=== PATIENT | female | born 1955 | race African-American/Black ===

== ENCOUNTER 2016-12-24 08:31 | Inpatient (IN) ==
[2016-12-24] MEDS ORDERED: ACETAMINOPHEN 325 MG TABLET PO PRN ×2 (10:04)
[2016-12-24] MEDS ORDERED: ONDANSETRON 4 MG/2 ML VIAL IV PRN (10:04)
[2016-12-24 11:18] LABS: Apearance,Urine Slightly Hazy (Clear); Bilirubin,Urine Negative (Negative); Blood, Urine Moderate mg/dL (Negative); Glucose,Urine (UA) Negative (Negative); Hyaline Casts,Urine 11 /LPF (0-3); Ketones,Urine Negative (Negative); Mucus,Urine Occasional /LPF (Occasional); Nitrite,Urine Negative (Negative); Protein,Urine Negative; RBC,Urine 16 /HPF (0-4); Squamous Epithelial Cell,Urine Occasional /HPF (0-10); Urine Color Yellow (Yellow); Urine Specific Gravity 1.009 (1.001-1.035); Urine Urobilinogen < 2.0 EU/DL (0.2-1.0); WBC,Urine 4 /HPF (0-6)
--- NOTE | 2016-12-24 11:45 | Hospitalist History & Physical ---
Assessment and Plan (1) Bilateral pleural effusion Status: Acute Assessment and plan: Will obtain chest xray and continue diuresis. May require therapeutic thorocentesis if no improvement in 24 hours. Current Visit: Yes (2) Leukocytosis Status: Acute Assessment and plan: Will obtain gill cultures; and continue empirical antibiotics. Current Visit: Yes (3) Congestive heart failure (CHF) Status: Acute Assessment and plan: Continue diuretics and obtain echocardiogram today. Will repeat CXR in AM. Current Visit: Yes History of Present Illness Chief complaint: Upper GI Bleed, dyspnea, leukocytosis, congestive heart failure History of present illness: This is a very pleasant 61 year-old -German female that presents today as a lateral transfer from [facility]. She presented to [facility] on 12/22 reporting a chief complaint of rectal bleeding x2 days. The patient reported similar an episode similar in nature "a couple of weeks ago"; however she reports that "it stopped by itself". She has medical history positive for hypertension. She reports a surgical history of a hysterectomy; however she is unable to report the year at this time. At the time of admission at [facility], a full diagnostic work-up was performed. Stools for occult blood were positive; however her hemoglobin and hematocrit remained stable. She had no further episodes of bloody stools. The patient developed tachycardia, which was thought to secondary to volume depletion and at that time fluids were given. The patient remained tachycardic; however she was stable. A BNP was obtained; which revealed a moderate elevation and diuretics were given and her BNP trended down to 911 today. On yesterday, the patient developed dyspnea, became febrile, and had a noted elevation in her white blood cell counts were noted to be 23,000. A CT of the chest was ordered which revealed congestive heart failure, bilateral plueral effusion; however no pulmonary embolism was present. The client was then placed on empirical antibiotics and observed overnight. Today, she appeared more short of breath and ill in appearance. She was evaluated and deemed appropriate for transfer to [facility] for advanced level of care. She will be admitted to the hospitalist services for continuation of care. Home Medications Medication Instructions Recorded Confirmed Type Albuterol Inhaler [Proventil 2 puffs INH Q6HR PRN 12/24/16 12/24/16 History Inhaler] Aspirin [Ecotrin] 81 mg PO DAILY 12/24/16 12/24/16 History Benzonatate 200 mg PO TID 12/24/16 12/24/16 History Budesonide/Formoterol 160-4.5 2 puffs INH DAILY 12/24/16 12/24/16 History [Symbicort 160-4.5] Cetirizine HCl [Cetirizine Tab] 10 mg PO DAILY 12/24/16 12/24/16 History Fluticasone 50 Mcg Nasal [place] 1 spray BOTH NARES DAILY 12/24/16 12/24/16 History [Flonase Nasal [place]] Montelukast Tab [Singulair Tab] 10 mg PO BEDTIME 12/24/16 12/24/16 History Omeprazole [Omeprazole] 40 mg PO DAILY 12/24/16 12/24/16 History amLODIPine [Norvasc] 10 mg PO DAILY 12/24/16 12/24/16 History hydroCHLOROthiazide 25 mg PO DAILY 12/24/16 12/24/16 History [Hydrochlorothiazide] predniSONE TAB [PredniSONE] 20 mg PO DAILY 12/24/16 12/24/16 History Allergies Allergy/AdvReac Type Severity Reaction Status Date / Time morphine AdvReac Mild Nausea Verified 12/24/16 11:27 Medical,Surgical,& Family Hx - Medical History Cardio: History of: Hypertension Genitourinary: History of: Recurring Urinary Tract Infections Gastrointestinal: History of: GERD, Hemorrhoids Musculoskeletal: History of: Osteoporosis No history of: Amputation Reproductive: History of: Reproductive Problems - Surgical History Cardiac Surgeries: Patient Denies: Cardiac Catheterization Thoracic Surgeries: Patient denies;: Organ Transplant, Lobectomy Neurologic Surgeries: Patient denies: Neurologic Surgery HEENT Surgeries: Patient denies: Tonsilectomy & Adenoidectomy Abdominal Surgeries: Patient denies: Abdominal Surgery Reproductive Surgeries: Surgical HX of;: Gynecologic Surgery, Hysterectomy Patient denies;: Genitourinary Surgery - Family History Family History: Reports;: Family Diabetes (neice), Family Hypertension (mom), Family Stroke (sister) - Social History Smoking Status: Never smoker Frequency of Alcohol Use: None Type of Drug Use: None 12 point system: reviewed and no additional remarkable complaints except as stated - Cardiovascular Cardiovascular: Present: dyspnea, dyspnea on exertion, orthopnea - Respiratory Respiratory: Present: cough, dyspnea, dyspnea on exertion - Gastrointestinal Gastrointestinal: Present: abdominal pain, cramping, melena - Genitourinary Genitourinary: Present: as per HPI - Musculoskeletal Musculoskeletal: Present: as per HPI - Neurological Neurological: Present: as per HPI - Psychiatric Psychiatric: Present: as per HPI - Endocrine Endocrine: Present: as per HPI - Hematologic/Lymphatic Hematologic/Lymphatic: Present: as per HPI Exam - Constitutional Vitals: Period Temp Pulse Resp BP Sys/Hart Pulse Ox Last 24 Hr 97.4 F 110 20 143/79 89 General appearance: normal weight, mild distress - Head Head exam: Present: normal inspection, normocephalic, atraumatic - Eye Eye exam: Present: EOMI Pupils: Present: MORGAN, normal accommodation - ENT ENT exam: Present: normal exam - Neck Neck exam: Present: normal inspection. Absent: lymphadenopathy, meningismus, thyromegaly - Respiratory Respiratory exam: Present: accessory muscle use, decreased breath sounds - Cardiovascular Cardiovascular exam: Present: tachycardia. Absent: carotid bruit, diastolic murmur, gallop, JVD, rubs, systolic murmur - GI/Abdominal GI/Abdominal exam: Present: normal bowel sounds, soft - Extremities Exam Extremities exam: Present: normal inspection - Back Exam Back exam: Present: normal inspection - Neurological Exam Neurological exam: Present: alert, oriented X3, CN II-XII intact - Psychiatric Psychiatric exam: Present: normal affect - Skin Skin exam: Present: normal color, warm, dry Quality Measures - VTE Deep Vein Thrombosis/Pulmonary Embolism Present on Admission: No Contraindication to Pharmacological VTE Prophylaxis: Active Bleeding
--- NOTE | 2016-12-24 15:40 | XRay Report ---
Exam: XR chest 1V portable Date: 12/24/2016 2:49 PM Indication: Shortness of breath, effusion Comparison: None Technical: AP portable Findings: Cardiomegaly present. Low volume effusions are present. External cardiac leads are present. No obvious consolidation or pneumothorax. Mediastinum is intact. Impression: 1. Cardiomegaly with tiny low volume effusion suspected bilaterally in the mid inspiratory chest. PROCEDURE INTERPRETED AT [facility] DEPARTMENT OF RADIOLOGY Final Report Signed by: Dr. Stanislaw Avery
[2016-12-24 16:02] LABS: Allen Test Positive
[2016-12-24 16:03] LABS: ABG HCO3 38.9 MMOL/L (20-26); ABG Oxygen Saturation 92.9 % (95-100); ABG PCO2 50.2 MM HG (35-48); ABG PH 7.507 (7.35-7.45); ABG PO2 64.8 MM HG (80-95); ABG TCO2 40.4 MMOL/L (23-27)
[2016-12-24] MEDS: methylPREDNISolone SOD SUC 40 MG/1 ML VIAL IV SCH (16:21)
[2016-12-24] MEDS: PIPERACILLIN/TAZOBACTAM 3,375 MG in SODIUM CHLORIDE 0.9% 100 ML IV SCH (16:21)
[2016-12-24] MEDS: BENZONATATE 100 MG CAPSULE PO SCH ×2 (16:23→22:10)
--- NOTE | 2016-12-24 16:36 | Pulmonology Consult Note ---
Assessment and Plan (1) Hematochezia Status: Acute Assessment and plan: This will need to be worked up by GI. She needs a colonoscopy at some point. Current Visit: Yes (2) Bilateral pleural effusion Status: Acute Assessment and plan: She had a normal chest x-ray by report 2 months ago at [place]. Now with bilateral pleural effusions. I would be concerned about fluid overload or congestive heart failure. Agree with evaluation for inflammatory causes of effusions. She had an outside CT scan. I can see a report but not the films. We will attempt to get the films put in the computer so we will have to repeat the CT. need to be sure there is enough fluid to safely tap Current Visit: Yes (3) Congestive heart failure (CHF) Status: Acute Assessment and plan: Need to get echocardiogram and BNP Current Visit: Yes History of Present Illness Chief complaint: Cough and shortness of breath History of present illness: Ms. Hammond is a 61 year old female was at [place] last month and had evaluation and was put on bronchodilators. She said it was for allergies she does not know of any diagnosis of asthma. She went home and did all right but has recently been admitted to the hospital in [place] and transferred here because of rectal bleeding. She was found on chest x-ray to have small bilateral pleural effusions. She also has elevated white count. She had a CT done in [place] that revealed evidence of congestive heart failure with bilateral pleural effusions however we do not have the films to review. She has not had fever or chills Home Medications Medication Instructions Recorded Confirmed Type Albuterol Inhaler [Proventil 2 puffs INH Q6HR PRN 12/24/16 12/24/16 History Inhaler] Aspirin [Ecotrin] 81 mg PO DAILY 12/24/16 12/24/16 History Benzonatate 200 mg PO TID 12/24/16 12/24/16 History Budesonide/Formoterol 160-4.5 2 puffs INH DAILY 12/24/16 12/24/16 History [Symbicort 160-4.5] Cetirizine HCl [Cetirizine Tab] 10 mg PO DAILY 12/24/16 12/24/16 History Fluticasone 50 Mcg Nasal [place] 1 spray BOTH NARES DAILY 12/24/16 12/24/16 History [Flonase Nasal [place]] Montelukast Tab [Singulair Tab] 10 mg PO BEDTIME 12/24/16 12/24/16 History Omeprazole [Omeprazole] 40 mg PO DAILY 12/24/16 12/24/16 History amLODIPine [Norvasc] 10 mg PO DAILY 12/24/16 12/24/16 History hydroCHLOROthiazide 25 mg PO DAILY 12/24/16 12/24/16 History [Hydrochlorothiazide] predniSONE TAB [PredniSONE] 20 mg PO DAILY 12/24/16 12/24/16 History Allergies Allergy/AdvReac Type Severity Reaction Status Date / Time morphine AdvReac Mild Nausea Verified 12/24/16 11:27 - Constitutional Constitutional: Present: fatigue - Cardiovascular Cardiovascular: Present: dyspnea, dyspnea on exertion, orthopnea - Respiratory Respiratory: Present: cough, dyspnea, dyspnea on exertion - Gastrointestinal Gastrointestinal: Present: abdominal pain, hematochezia Exam (Pulmonay) H&P - Constitutional Vitals: Period Temp Pulse Resp BP Sys/Hart Pulse Ox Last 24 Hr 97.4 F-98.8 F 110-120 18-20 143-143/77-79 89-90 Exam: He is alert oriented vital signs normal. Pupils react to light. Throat is clear. Neck supple no bruits. Chest reveals some dullness in the bases and a few rales. Heart normal rate and rhythm no murmurs no rubs no gallops. Abdomen soft nontender no masses. Bowel sounds present. Extremities no clubbing or cyanosis she has a trace of edema Medical,Surgical,& Family Hx - Medical History Cardio: History of: Hypertension Genitourinary: History of: Recurring Urinary Tract Infections Gastrointestinal: History of: GERD, Hemorrhoids Musculoskeletal: History of: Osteoporosis No history of: Amputation Reproductive: History of: Reproductive Problems - Surgical History Cardiac Surgeries: Patient Denies: Cardiac Catheterization Thoracic Surgeries: Patient denies;: Organ Transplant, Lobectomy Neurologic Surgeries: Patient denies: Neurologic Surgery HEENT Surgeries: Patient denies: Tonsilectomy & Adenoidectomy Abdominal Surgeries: Patient denies: Abdominal Surgery Reproductive Surgeries: Surgical HX of;: Gynecologic Surgery, Hysterectomy Patient denies;: Genitourinary Surgery - Family History Family History: Reports;: Family Diabetes (neice), Family Hypertension (mom), Family Stroke (sister) - Social History Smoking Status: Never smoker Frequency of Alcohol Use: None Type of Drug Use: None Results - Diagnostic Findings Procedure: Chest x-ray: image reviewed by me (Bilateral pleural effusions are little larger on the right than the left. Cardiomegaly.) Quality Measures - VTE Deep Vein Thrombosis/Pulmonary Embolism Present on Admission: No Contraindication to Pharmacological VTE Prophylaxis: Active Bleeding - Stroke Symptom Onset Unknown: No
[2016-12-24 17:12] LABS: INR 1.3
[2016-12-24 17:15] LABS: Albumin 2.7 G/DL (3.4-5.0); Total Protein 6.9 G/DL (6.4-8.3)
--- NOTE | 2016-12-24 17:28 | XRay Report ---
Exam: XR chest lateral decubitus BI Date: 12/24/2016 4:32 PM Indication: Pleural effusion Comparison: 12/24/2016 at 3:01 PM Technical: Right and left decubitus imaging was obtained. Findings: No obvious layering of pleural fluid along the left chest with minimal thickening of the pleural margin. Cardiomegaly is present. No significant layering of fluid along the right chest with some atelectatic change present in the right base and tiny effusions. Impression: 1. No significant layering pleural effusions bilaterally with underlying atelectatic change and cardiomegaly. Small effusions are present with atelectasis bilaterally PROCEDURE INTERPRETED AT [facility] DEPARTMENT OF RADIOLOGY Final Report Signed by: Dr. Stanislaw Avery
[2016-12-24 17:36] LABS: Basophils % 0.2 % (0.0-0.8); Hematocrit 33.4 VOL% (35.7-47.0); Hemoglobin 10.6 GM/DL (12.0-16.0); Immature Granulocytes % 0.8 %; Immature Granulocytes Absolute 0.15 #; Lymphocytes # 1.3 10*3/uL (1.4-4.0); Lymphocytes % 6.4 % (21.3-54.2); Mean Corpuscular HGB Conc 31.7 GM/DL (32-36); Mean Corpuscular Hemoglobin 28 PG (27-34); Mean Corpuscular Volume 87.7 FL (87-102); Mean Platelet Volume 9.8 FL (9.6-12.0); Monocytes # 1.3 10*3/uL (0.11-0.8); Monocytes % 6.6 % (1.7-12.7); Neutrophils # 17.2 10*3/uL (1.4-7.4); Platelet Count 331 T/CUMM (130-400); Red Blood Count 3.81 MC/CUMM (3.8-5.5); Red Cell Distribution Width 15.6 % (9.3-17.3)
[2016-12-24 17:46] LABS: Calcium 8.8 MG/DL (8.5-10.1); Osmolality,Calculated 283.4 MOS/KG (273-304); Potassium 3.4 MMOL/L (3.5-5.1)
[2016-12-24] MEDS ORDERED: VANCOMYCIN INJ 750 MG in SODIUM CHLORIDE 0.9% 250 ML IV SCH (21:00)
[2016-12-24] MEDS: MONTELUKAST 10 MG TABLET PO SCH (22:11)
[2016-12-25] MEDS: PIPERACILLIN/TAZOBACTAM 3,375 MG in SODIUM CHLORIDE 0.9% 100 ML IV SCH ×3 (00:45→15:26)
[2016-12-25] MEDS: methylPREDNISolone SOD SUC 40 MG/1 ML VIAL IV SCH ×2 (03:56→15:26)
[2016-12-25 05:22] LABS: Basophils % 0.1 % (0.0-0.8); Hematocrit 32.9 VOL% (35.7-47.0); Hemoglobin 10.2 GM/DL (12.0-16.0); Immature Granulocytes % 1.5 %; Immature Granulocytes Absolute 0.23 #; Lymphocytes # 0.9 10*3/uL (1.4-4.0); Lymphocytes % 5.8 % (21.3-54.2); Mean Corpuscular Hemoglobin 27 PG (27-34); Mean Platelet Volume 9.2 FL (9.6-12.0); Monocytes # 0.6 10*3/uL (0.11-0.8); Neutrophils # 13.7 10*3/uL (1.4-7.4); Neutrophils % 88.6 % (38.7-73.9); Platelet Count 328 T/CUMM (130-400); Red Blood Count 3.74 MC/CUMM (3.8-5.5); Red Cell Distribution Width 15.7 % (9.3-17.3); White Blood Count 15.4 T/CUMM (4-12)
[2016-12-25 05:52] LABS: Albumin 2.4 G/DL (3.4-5.0); Bilirubin,Total 0.4 MG/DL (0.2-1.0); Calcium 8.4 MG/DL (8.5-10.1); Magnesium 2.5 MG/DL (1.8-2.4); Osmolality,Calculated 289.1 MOS/KG (273-304); Potassium 3.5 MMOL/L (3.5-5.1); Risk Ratio 4.79; Thyroid Stimulating Hormone 0.262 uIU/ml (0.358-3.74); Total Protein 6.4 G/DL (6.4-8.3); VLDL CHOLESTEROL 16.2 MG/DL
--- NOTE | 2016-12-25 07:47 | XRay Report ---
Single view of the chest. Indication: Shortness of breath. Comparison: December 24, 2016. The cardiac silhouette is enlarged. The pulmonary vasculature is normal. There is opacity over both lung bases, at the right base there is some improvement in aeration, with mild infiltrate or atelectasis persisting, and a small right pleural effusion. Increased opacity at the left lung base which may represent atelectasis or pneumonia, plus pleural effusion, generally unchanged. Degenerative changes of both shoulders. Impression: Enlarged cardiac silhouette, stable. Some improvement at the right base, stable pleural and parenchymal abnormality at the left base. PROCEDURE INTERPRETED AT [facility] DEPARTMENT OF RADIOLOGY Final Report Signed by: Dr. Divine Llanos
--- NOTE | 2016-12-25 08:11 | Pulmonology Progress Note ---
Pulmonary - PN: Subj Interval history: This 61-year-old black female came in with shortness of breath. An outside CT done in [place] day before yesterday indicate bilateral pleural effusions and looks to me like she has a significant pericardial effusion as well. She set up for a thoracentesis ultrasound-guided today. She has had markers for rheumatologic disorders. She is not febrile. An echocardiogram is pending. We may need to have cardiology to see her to see if she needs a pericardiocentesis or other evaluation of pericardial effusion. We will let the echocardiogram tell us that. Exam (Progress Note) - Constitutional Vitals: Period Temp Pulse Resp BP Sys/Hart Pulse Ox Last 24 Hr 96.3 F-98.8 F 63-120 16-20 143-190/77-87 89-99 Exam: Patient's alert oriented vital signs are normal. Pupils react to light. Throat is clear. Neck supple no bruits. Chest reveals decreased breath sounds at the bases and slight dullness. Heart normal rate and rhythm I do not hear any murmurs or rubs. Abdomen is soft nontender no masses. Extremities she has trace to 1+ peripheral edema. Calves nontender. Results - Labs CBC & BMP: 12/25/16 04:28 12/25/16 04:28 Lab Results: I have reviewed the past 24 hour labs - Diagnostic Findings Procedure: Chest x-ray: image reviewed by me (Lateral decubitus x-rays show a small amount of fluid bilaterally about 1.5 cm at most.) Assessment and Plan (1) Hematochezia Status: Acute Assessment and plan: This will need to be worked up by GI. She needs a colonoscopy at some point. 12/25/2016 she will need a colonoscopy for the hematochezia at some point. Current Visit: Yes (2) Bilateral pleural effusion Status: Acute Assessment and plan: She had a normal chest x-ray by report 2 months ago at [place]. Now with bilateral pleural effusions. I would be concerned about fluid overload or congestive heart failure. Agree with evaluation for inflammatory causes of effusions. She had an outside CT scan. I can see a report but not the films. We will attempt to get the films put in the computer so we will have to repeat the CT. need to be sure there is enough fluid to safely tap 12/25/2016 she is to have a thoracentesis with ultrasound guidance by interventional radiology today. Current Visit: Yes (3) Congestive heart failure (CHF) Status: Acute Assessment and plan: Need to get echocardiogram and BNP 12/25/2016 it appears that she has pericardial fluid on her outside CT. That was not available for viewing yesterday. Echocardiogram is pending. Current Visit: Yes
--- NOTE | 2016-12-25 08:23 | Physician Query Form ---
CLICK EDIT DOCUMENT TO SELECT QUERY ANSWER --> OK --> SIGN Shivani Mckeon RN, CCDS Certified Clinical Picking Machine Operator W) [phone] (f) [phone] [email or web address] PROVIDERS: Make your selection(s) from the choices in EACH section by typing an "x" and enter comments in the comment section. Please use your independent medical judgment in providing your response. This request does not imply that any particular answer is desired or expected. CLINICAL INDICATORS: (Providers should not edit this section) The medical record indicates that the patient was admitted with pleural effusion , CHF, BNP 162#, xray on the 3rd: "Cardiomegaly with tiny low volume effusion suspected bilaterally in the mid inspiratory chest" and no Lasix was seen. Please provide further specificity regarding CHF. ACUITY: ( ) Acute ( ) Chronic ( ) Acute on Chronic ( ) Clinically unable to determine TYPE: ( ) Systolic ( ) Diastolic ( ) Combined Systolic/Diastolic ( x) Other, please specify:we don't know if she has CHF yet. be patient! echo pending ( ) Clinically unable to determine ( ) The patient does NOT have CHF COMMENTS: Use of terms such as suspected, likely, or probable (associated with a specific diagnosis that is being evaluated, monitored, or treated as if it exists) are acceptable and can be restated in the discharge summary if not ruled out. MTDD
--- NOTE | 2016-12-25 08:33 | Physician Query Form ---
CLICK EDIT DOCUMENT TO SELECT QUERY ANSWER --> OK --> SIGN Shivani Mckeon RN, CCDS Certified Clinical Customer Specialist W) [phone] (f) [phone] [email or web address] PROVIDERS: Make your selection(s) from the choices in EACH section by typing an "x" and enter comments in the comment section. Please use your independent medical judgment in providing your response. This request does not imply that any particular answer is desired or expected. CLINICAL INDICATORS: (Providers should not edit this section) The medical record indicates that the patient was admitted with pleural effusion , CHF, "accessory muscle use, decreased breath sounds", "dyspnea, dyspnea on exertion, orthopnea", pH 7.507, pCO2 50.2, p02 64.8, RR of 20#, the patient was admitted and placed on 5 liters of oxygen per NC. If possible, please further clarify the type and acuity of respiratory diagnosis : ACUITY: ( x) Acute ( ) Chronic ( ) Acute on Chronic TYPE: (x ) Respiratory failure with hypoxia ( x) Respiratory failure with hypercapnia ( ) Respiratory Arrest ( ) Postprocedural/postoperative respiratory failure ( ) Respiratory Insufficiency ( ) ARDS (Adult/Acute Respiratory Distress Syndrome) ( ) Other, please specify: ( ) Clinically unable to determine Recognized criteria for respiratory failure PH <7.35 or >7.45 PO2 <60 PCO2 >50 RR >24 O2 Sat <90% on RA or <95% on O2 Use of accessory muscles Unable to speak in full sentences Intubation is not required COMMENTS: Use of terms such as suspected, likely, or probable (associated with a specific diagnosis that is being evaluated, monitored, or treated as if it exists) are acceptable and can be restated in the discharge summary if not ruled out. MTDD
[2016-12-25] MEDS ORDERED: predniSONE 20 MG TABLET PO SCH (09:00)
[2016-12-25] MEDS: amLODIPine 10 MG TABLET PO SCH (09:15)
[2016-12-25] MEDS: hydroCHLOROthiazide 25 MG TABLET PO SCH (09:15)
[2016-12-25] MEDS: BENZONATATE 100 MG CAPSULE PO SCH ×3 (09:15→21:10)
[2016-12-25] MEDS: ASPIRIN EC 81 MG TABLET PO SCH (09:15)
[2016-12-25] MEDS: CETIRIZINE 10 MG TABLET PO SCH (09:16)
[2016-12-25] MEDS: BUDESONIDE/FORMOTEROL 160-4.5 INHALER 6 GM INH SCH (09:16)
[2016-12-25] MEDS: PANTOPRAZOLE 40 MG TABLET PO SCH (09:16)
[2016-12-25] MEDS: FLUTICASONE 50 MCG NASAL SPRAY 16 GM BOTTLE BOTH NARES SCH (09:21)
--- NOTE | 2016-12-25 09:58 | Post Interventional Procedure ---
Pre-op diagnosis: Lt pleural effusion Post-op diagnosis: same Procedure: US guided thoracentesis Radiologist: Ernie Balderas Anesthesia: local Specimens: other (5 cc straw colored pleural fluid) Estimated blood loss: none Complications: none Condition: stable Description/Findings: Only able to aspirate 5 cc straw colored fluid, requiring 2 passes under US guidance into a hypoechoic collection left posterior pleural space. Suspect loculations of a very small pleural effusion. No additional pleural fluid identified by US. Assessment and Plan - Time spent with patient Time spent with patient: Less than 30 minutes
[2016-12-25] MEDS: VANCOMYCIN INJ 1,250 MG in SODIUM CHLORIDE 0.9% 250 ML IV SCH ×2 (10:24→21:09)
[2016-12-25 12:09] LABS: Double Stranded DNA Antibodies > 200.0 IU/ML
[2016-12-25 12:11] LABS: Anti SS-A Antibodies < 16 EU/ML; Anti SS-B Antibodies < 16 EU/ML
--- NOTE | 2016-12-25 12:22 | XRay Report ---
XR chest post procedure Indication: Postthoracentesis. Post procedure chest radiograph, 2 views: Inspiratory and expiratory views of the chest were obtained. No pneumothorax shown. This radiograph shows at most, there is only a trace amount of pleural fluid on this exam best seen on the inspiratory view. Cardiomegaly is stable from earlier. Impression: No pneumothorax following thoracentesis. PROCEDURE INTERPRETED AT [facility] DEPARTMENT OF RADIOLOGY Final Report Signed by: Ernie Balderas M.D.
--- NOTE | 2016-12-25 12:24 | Ultrasound Report ---
US thoracentesis Indication: Pleural effusion. ULTRASOUND-GUIDED THORACENTESIS Description: A formal timeout was performed. Maximum sterile barrier technique was used. A extremely small left pleural effusion was identified with ultrasound. The left back was prepped and draped in sterile fashion. Under sonographic guidance, a 6 Lao pigtail catheter was advanced into the effusion using trocar technique. A captured sonographic image documents needle position. The needle was removed. Through the catheter, we obtained a total of 2 cc of straw-colored, clear fluid. The catheter was removed. A second pass was then made with the pigtail catheter using trocar technique further medially into the same fluid collection, also with ultrasound guidance. Another captured sonographic image was saved. This time, we obtained a total of 3 cc straw-colored fluid. A bandage was placed at the puncture site. The patient tolerated the procedure well. Chest radiograph is pending. Specimen: 5 cc straw-colored clear pleural fluid. Impression: Ultrasound-guided thoracentesis. Tiny pleural effusion. PROCEDURE INTERPRETED AT [facility] DEPARTMENT OF RADIOLOGY Final Report Signed by: Ernie Balderas M.D.
--- NOTE | 2016-12-25 13:47 | Hospitalist Progress Note ---
Assessment and Plan (1) Bilateral pleural effusion Status: Acute Assessment and plan: Thoracentesis this AM per IR. Will re-check CXR in AM. Current Visit: Yes (2) Leukocytosis Status: Acute Assessment and plan: Continue empirical antibiotics and previously ordered. Current Visit: Yes (3) Congestive heart failure (CHF) Status: Acute Assessment and plan: Will re-check BNP in AM. Awaiting Echo report. Current Visit: Yes Hospitalist: Subjective Interval history: Patient seen and examined. No significant overnight events. Scheduled for ultrasound guided thoracentesis this AM. Exam - Constitutional Vitals: Period Temp Pulse Resp BP Sys/Hart Pulse Ox Last 24 Hr 96.3 F-98.8 F 63-126 16-22 143-191/77-101 90-100 General appearance: normal weight, mild distress - Head Head exam: Present: normal inspection, normocephalic, atraumatic - Eye Eye exam: Present: EOMI. Absent: periorbital swelling, scleral icterus, laceration to eyelids Pupils: Present: MORGAN, normal accommodation - ENT ENT exam: Present: normal exam - Neck Neck exam: Present: normal inspection. Absent: lymphadenopathy, meningismus, tenderness, thyromegaly - Respiratory Respiratory exam: Present: decreased breath sounds. Absent: rhonchi, stridor, wheezes - Cardiovascular Cardiovascular exam: Present: regular rate and rhythm. Absent: carotid bruit, diastolic murmur, gallop, JVD, rubs, systolic murmur - GI/Abdominal GI/Abdominal exam: Present: normal bowel sounds, soft - Extremities Exam Extremities exam: Present: normal inspection, full ROM, edema (+2) - Back Exam Back exam: Present: normal inspection - Neurological Exam Neurological exam: Present: alert, oriented X3, CN II-XII intact - Psychiatric Psychiatric exam: Present: normal affect, normal mood - Skin Skin exam: Present: normal color, warm, dry Results - Labs CBC & BMP: 12/25/16 04:28 12/25/16 04:28 Lab Results: I have reviewed the past 24 hour labs Quality Measures - VTE Deep Vein Thrombosis/Pulmonary Embolism Present on Admission: No Contraindication to Pharmacological VTE Prophylaxis: Active Bleeding - Stroke Symptom Onset Unknown: No
--- NOTE | 2016-12-25 19:53 | ECHO Report ---
Rhoda Hammond Exam Date: 12/25/2016 11:26 Referring Physician: Technologist: Anitha Rodriguez RDCS Age: 61 Ht (in): 65 Wt (lb): 176 Gender: F Exam Location: [facility] Echo Indications: Heart failure, unspecified, Pleural effusion, not elsewhere classified, Leukocytosis, Essential (primary) hypertension, Orthopnea, Cough BP: 160 / 91 HR: 119 Rhythm: Sinus Technical Quality: IMPRESSIONS Technically limited study. Small left ventricle, without hypertrophy, with normal systolic function. Estimated left ventricular ejection fraction 65%. Small concentric pericardial effusion, with incomplete data to estimate hemodynamic significance. MEASUREMENTS (Male / Female) Normal Values 2D ECHO LV Diastolic Diameter PLAX 2.9 cm 4.2 - 5.9 / 3.9 - 5.3 cm LV Systolic Diameter PLAX 1.7 cm LV Fractional Shortening PLAX 42.2 % IVS Diastolic Thickness 0.9 cm 0.6 - 1.0 / 0.6 - 0.9 cm LVPW Diastolic Thickness 1.0 cm 0.6 - 1.0 / 0.6 - 0.9 cm RV Internal Dim ED PLAX 1.7 cm Aortic Root Diameter 3.1 cm LA Systolic Diameter LX 4.0 cm 3.0 - 4.0 / 2.7 - 3.8 cm DOPPLER TR Peak Velocity 247.0 cm/s TR Peak Gradient 24.4 mmHg FINDINGS Left Ventricle Small left ventricle, without hypertrophy, with normal systolic function. Estimated left ventricular ejection fraction 65%. Insufficient data to estimate diastolic function. Right Ventricle The right ventricle is normal in size and function. Right Atrium The right atrium is poorly visualized. Left Atrium Normal left atrial size. Mitral Valve Morphologically normal mitral valve without significant stenosis or prolapse. There is trace mitral regurgitation. Insufficient data to estimate respiratory variation and mitral inflow. Aortic Valve Morphologically normal aortic valve without significant sclerosis or stenosis. There is no aortic regurgitation. Tricuspid Valve Morphologically normal tricuspid valve. Trace to mild tricuspid valve regurgitation. Tricuspid regurgitation velocities suggest a PAP of 34 mmHg. Pulmonic Valve Morphologically normal pulmonic valve. Trace pulmonary valve regurgitation. Pericardium Small concentric pericardial effusion, up to 1.5 centimeters in diastole. Insufficient data to estimate hemodynamic significance. No right ventricular collapse is seen. The right atrium is not well visualized. Aorta Normal ascending aorta dimension. Chauncey Carmen (Electronically Signed) Final Date: 25 December 2016 19:52
[2016-12-25] MEDS: MONTELUKAST 10 MG TABLET PO SCH (21:10)
[2016-12-26] MEDS: PIPERACILLIN/TAZOBACTAM 3,375 MG in SODIUM CHLORIDE 0.9% 100 ML IV SCH ×4 (00:45→23:26)
[2016-12-26] MEDS ORDERED: METOPROLOL TARTRATE 25 MG TABLET ONE (02:46)
[2016-12-26] MEDS: METOPROLOL TARTRATE 25 MG TABLET PO SCH ×3 (02:54→22:05)
[2016-12-26] MEDS: methylPREDNISolone SOD SUC 40 MG/1 ML VIAL IV SCH ×2 (04:04→16:05)
[2016-12-26 06:17] LABS: Free T4 (Free Thyroxine) 1.46 NG/DL (0.76-1.46); Thyroid Stimulating Hormone 0.374 uIU/ml (0.358-3.74)
--- NOTE | 2016-12-26 07:55 | Pulmonology Progress Note ---
Pulmonary - PN: Subj Interval history: This 61-year-old black female came in with shortness of breath. An outside CT done in [place] day before yesterday indicate bilateral pleural effusions and looks to me like she has a significant pericardial effusion as well. She set up for a thoracentesis ultrasound-guided today. She has had markers for rheumatologic disorders. She is not febrile. An echocardiogram is pending. We may need to have cardiology to see her to see if she needs a pericardiocentesis or other evaluation of pericardial effusion. We will let the echocardiogram tell us that. 12/26/2016 the echocardiogram showed a small pericardial effusion. Left thoracentesis only obtained about 5 cc of fluid per interventional radiology. Patient has an elevated sed rate. This is suggestive of an inflammatory, autoimmune, rheumatologic, or infectious process. Await further serologic studies. Patient has elevated PCO2 and metabolic alkalosis. We will try on some Diamox. Agree with empiric antibiotics for now. Recheck x-ray Saturday. Exam (Progress Note) - Constitutional Vitals: Period Temp Pulse Resp BP Sys/Hart Pulse Ox Last 24 Hr 96.1 F-98.0 F 86-126 16-22 114-191/68-101 94-100 Exam: Patient's alert oriented vital signs are normal. Pupils react to light. Throat is clear. Neck supple no bruits. Chest reveals decreased breath sounds at the bases and slight dullness. Heart normal rate and rhythm I do not hear any murmurs or rubs. Abdomen is soft nontender no masses. Extremities she has trace to 1+ peripheral edema. Calves nontender. Little change from yesterday. Results - Labs CBC & BMP: 12/25/16 04:28 12/25/16 04:28 Lab Results: I have reviewed the past 24 hour labs Assessment and Plan (1) Hematochezia Status: Acute Assessment and plan: This will need to be worked up by GI. She needs a colonoscopy at some point. 12/25/2016 she will need a colonoscopy for the hematochezia at some point. 12/26/2016 agree with plans to evaluate with colonoscopy. Current Visit: Yes (2) Bilateral pleural effusion Status: Acute Assessment and plan: She had a normal chest x-ray by report 2 months ago at [place]. Now with bilateral pleural effusions. I would be concerned about fluid overload or congestive heart failure. Agree with evaluation for inflammatory causes of effusions. She had an outside CT scan. I can see a report but not the films. We will attempt to get the films put in the computer so we will have to repeat the CT. need to be sure there is enough fluid to safely tap 12/25/2016 she is to have a thoracentesis with ultrasound guidance by interventional radiology today. 12/26/2016 only a small amount of fluid obtained with thoracentesis. She has a pericardial effusion and bilateral pleural effusions. Look for inflammatory, infectious, autoimmune, rheumatologic causes. Current Visit: Yes (3) Congestive heart failure (CHF) Status: Acute Assessment and plan: Need to get echocardiogram and BNP 12/25/2016 it appears that she has pericardial fluid on her outside CT. That was not available for viewing yesterday. Echocardiogram is pending. 12/26/2016 BNP has not significantly elevated. Echocardiogram showed normal LV function with small pericardial effusion. Current Visit: Yes
--- NOTE | 2016-12-26 08:35 | Hospitalist Progress Note ---
Assessment and Plan (1) Bilateral pleural effusion Status: Acute Assessment and plan: Thoracentesis on yesterday; yielded 5ml of pleural fluid. Awaiting serology report. Seen per Pulmonary on this AM, agree with recommendations to start Diamox, continue empiric antibiotics, and review of chest X-ray on Saturday. Current Visit: Yes (2) Leukocytosis Status: Acute Assessment and plan: Continue empirical antibiotics and previously ordered. Current Visit: Yes (3) Congestive heart failure (CHF) Status: Acute Assessment and plan: Echo completed on 12/25; EF 65% with mild TVR. Start Diamox per pulmonary recommendation. Current Visit: Yes Hospitalist: Subjective Interval history: Patient seen and examined. No significant overnight events reported. Patient states that she "feels better". Echo completed on yesterday; EF of 65% with mild TVR. Awaiting serology report from thoracentesis. Exam - Constitutional Vitals: Period Temp Pulse Resp BP Sys/Hart Pulse Ox Last 24 Hr 96.1 F-98.0 F 86-126 16-22 114-191/68-101 94-100 General appearance: normal weight, no acute distress - Head Head exam: Present: normal inspection, normocephalic, atraumatic - Eye Eye exam: Present: EOMI Pupils: Present: MORGAN, normal accommodation - ENT ENT exam: Present: normal exam - Neck Neck exam: Present: normal inspection. Absent: lymphadenopathy, meningismus, tenderness, thyromegaly - Respiratory Respiratory exam: Present: decreased breath sounds. Absent: rales, rhonchi, stridor, wheezes - Cardiovascular Cardiovascular exam: Present: regular rate and rhythm. Absent: carotid bruit, diastolic murmur, gallop, JVD, rubs, systolic murmur - GI/Abdominal GI/Abdominal exam: Present: normal bowel sounds, soft. Absent: distended, firm , guarding, mass - Extremities Exam Extremities exam: Present: normal inspection, full ROM, edema (+2 edema noted) - Back Exam Back exam: Present: normal inspection - Neurological Exam Neurological exam: Present: alert, oriented X3, CN II-XII intact - Psychiatric Psychiatric exam: Present: normal affect, normal mood - Skin Skin exam: Present: normal color, warm, dry Results - Labs CBC & BMP: 12/25/16 04:28 04/04/17 04:28 Lab Results: I have reviewed the past 24 hour labs Quality Measures - VTE Deep Vein Thrombosis/Pulmonary Embolism Present on Admission: No Contraindication to Pharmacological VTE Prophylaxis: Active Bleeding - Stroke Symptom Onset Unknown: No
[2016-12-26] MEDS: BENZONATATE 100 MG CAPSULE PO SCH ×3 (09:41→22:01)
[2016-12-26] MEDS: acetaZOLAMIDE 250 MG TABLET PO SCH ×2 (09:41→22:04)
[2016-12-26] MEDS: amLODIPine 10 MG TABLET PO SCH (09:42)
[2016-12-26] MEDS: CETIRIZINE 10 MG TABLET PO SCH (09:43)
[2016-12-26] MEDS: PANTOPRAZOLE 40 MG TABLET PO SCH (09:43)
[2016-12-26] MEDS: hydroCHLOROthiazide 25 MG TABLET PO SCH (09:43)
[2016-12-26] MEDS: FLUTICASONE 50 MCG NASAL SPRAY 16 GM BOTTLE BOTH NARES SCH (09:44)
[2016-12-26] MEDS: VANCOMYCIN INJ 1,250 MG in SODIUM CHLORIDE 0.9% 250 ML IV SCH ×2 (09:45→21:56)
[2016-12-26] MEDS: BUDESONIDE/FORMOTEROL 160-4.5 INHALER 6 GM INH SCH (09:48)
[2016-12-26] MEDS: ASPIRIN EC 81 MG TABLET PO SCH (10:16)
--- NOTE | 2016-12-26 10:42 | Pathology Report from [facility] ---
ACCESSION # : [id number] PATIENT NAME : Rhoda Hammond ORDERING DR : RACHEL AGUIRRE MD CLINICAL HX: Left Pleural Effusion POST-OP DX: Same SPECIMEN INFO: Fluid,Pleural,Left - 2 ml's yellow-orange hazy with clot. CLASS: I CLASS COMMENTS: Proteinaceous material, few inflammatory cells.CELL BLOCK: Same CLASS LEGEND: CLASS 0 Material inadequate for diagnosis because of (see comment) CLASS I Absence of atypical or abnormal cells CLASS II Atypical Cytology but no evidence of malignancy CLASS III Cytology suggestive of but not conclusive for malignancy CLASS IV Cytology strongly suggestive of malignancy CLASS V Cytology conclusive for malignancy SERVICE DATE: 12/25/2016 REPORT DATE: 12/26/2016 PATHOLOGIST: Ray Huffman M.D. [facility]
[2016-12-26 15:26] LABS: Myeloperoxidase Antibody < 0.2 U
[2016-12-26] MEDS ORDERED: TUBERCULIN SKIN TEST 0.1 ML SYRINGE INTRADERM ONE (15:55)
--- NOTE | 2016-12-26 20:55 | Cardiology Consult Note ---
David, Fabienne Pickett RN, am scribing for, and in the presence of, Chauncey Carmen MD 20 :49. Assessment and Plan - Time spent with patient Time spent with patient: Greater than 30 minutes (due to assessment, planning, documentation, med review) (1) Pericardial effusion Status: Acute Assessment and plan: 61 year old BF, presenting with pleural and pericardial effusions, SOB, PAT/ PAF. HTN, obesity. Improved with thoracocentesis and high dose steroids. Susp. for autoimmune process. Pericardial effusion, PAT/PAF likely due to pericardial/myocardial involvement. No significant cardiomyopathy or valvular involvement. -Cont metoprolol for rate/rhythm control. Increase to 50 mg bid -PAF. CHADSVASC 2. Cont ASA. I would hold off anticoagulation at this time as she has peric+pleural effusion and recent BRBPR. -Peric effusion. No tamponade. This should improve once her inflammatory disease is better controlled, will need FU echo. -Keep on telemetry. Current Visit: Yes (2) Dyspnea Status: Acute Current Visit: Yes (3) Congestive heart failure (CHF) Status: Acute Current Visit: Yes (4) Hypertension Status: Chronic Current Visit: Yes (5) Bilateral pleural effusion Status: Acute Current Visit: Yes (6) Leukocytosis Status: Acute Current Visit: Yes (7) Hematochezia Status: Acute Current Visit: Yes History of Present Illness - Data of Consult Patient: known to practice within the last 3 years Consult date: 12/26/16 Requesting Physician: Marissa High - Consult Narrative Reason for consult: shortness of breath, pericardial effusion History of present illness: Primary onsite health coach: NONE. PCP: Dr. Carlos ([place]) (Switching to Dr. Barr) Consult note: shortness of breath, pericardial effusion per echo Ms. Hammond is a 61 year old black female with PMHx HTN, GERD, recurrent UTI, osteoporosis, and has recently had weight loss. Previously admitted at [facility] for teatment of bright red rectal bleeding. Stools (+) for occult blood, but H/H remained stable. No dizziness, SOB, hemodynamic instability. Later developed tachycardia and felt to be related to volume depletion and was given IV fluids for hydration. WBC increased to 23,000 and she was dyspneic. CT of the chest revealed CHF, bilateral pleural effusions but no PE. BNP was elevated and she was diuresed. She became more dypneic, developed fever, and was transferred to [facility]. Since admission, she has not had bloody stools, H/H stable, stools negative for occult blood. She has been evaluated by pulmonary, Dr. Diaz, for shortness of breath, pleural effusion, and c/o cough for past 4-5 years. Denied history of asthma or other respiratory dx. Had recently been treated for PNA and flu by her PCP and referred to Dr. Ceballos when pleural effusion noted on CXR. Underwent therapeutic left thoracentesis on 12/25, only 5 ml's pleural fluid removed, effusion was very small. She is being worked up for possible autoimmune disease and/or malignancy. Gastroenterology to be consulted for further GI workup upon improvement of respiratory status. Echocardiogram 12/25/16 with LV ejection fraction 65%, unable to determine diastolic dysfunction. Other cardiac chambers of normal size and function. No significant valvular disease. Mild TR with PA pressure 34 mmHg. Small pericardial effusion, 1.5 cm during diastole. No RV collapse seen, and RA not well visualized. Not able to determine hemodynamic significance with data provided. Sinus tachycardia per telemetry review. Yesterday afternoon and overnight, she had some brief atrial tachyarrhythmia with HR 160. She had bursts of AF. PO Lopressor was added. No recurrence of atrial tach or other significant arrhythmia this morning. Patient is awake and alert this morning, sitting on side of bed. No acute distress. Does have persistent cough and admits some light pink tinge mixed with yellow sputum production. No CP, SOB, orthopnea, PND, LE edema. BP is 140/ 70. Anti dsDNA strongly positive. She has a family member with sarcoidosis. CC: Marissa High MD - Home Medications and Allergies Home Medications: Home Medications Medication Instructions Recorded Confirmed Type Albuterol Inhaler [Proventil 2 puffs INH Q6HR PRN 12/24/16 12/24/16 History Inhaler] Aspirin [Ecotrin] 81 mg PO DAILY 12/24/16 12/24/16 History Benzonatate 200 mg PO TID 12/24/16 12/24/16 History Budesonide/Formoterol 160-4.5 2 puffs INH DAILY 12/24/16 12/24/16 History [Symbicort 160-4.5] Cetirizine HCl [Cetirizine Tab] 10 mg PO DAILY 12/24/16 12/24/16 History Fluticasone 50 Mcg Nasal [place] 1 spray BOTH NARES DAILY 12/24/16 12/24/16 History [Flonase Nasal [place]] Montelukast Tab [Singulair Tab] 10 mg PO BEDTIME 12/24/16 12/24/16 History Omeprazole [Omeprazole] 40 mg PO DAILY 12/24/16 12/24/16 History amLODIPine [Norvasc] 10 mg PO DAILY 12/24/16 12/24/16 History hydroCHLOROthiazide 25 mg PO DAILY 12/24/16 12/24/16 History [Hydrochlorothiazide] predniSONE TAB [PredniSONE] 20 mg PO DAILY 12/24/16 12/24/16 History Allergies/Adverse Reactions: Allergies Allergy/AdvReac Type Severity Reaction Status Date / Time morphine AdvReac Mild Nausea Verified 12/24/16 11:27 - Constitutional Constitutional: Present: fatigue, fever(s), weight loss. Absent: frequent falls , lethargy, malaise, night sweats, weakness - EENT Eyes: Absent: blurry vision, loss of vision Nose, mouth and throat: Absent: dysphagia, epistaxis, nasal congestion, neck pain, sore throat, throat swelling, tongue swelling, vertigo - Cardiovascular Cardiovascular: Present: dyspnea, dyspnea on exertion, edema (trace, pretibial) . Absent: chest pain at rest, chest pain with activity, claudication, diaphoresis, radiating jaw, neck or arm pain, lightheadedness, orthopnea, palpitations, PND - Respiratory Respiratory: Present: cough, dyspnea, dyspnea on exertion, change in phlegm color (yellow sputum production tinged light pink). Absent: wheezing - Gastrointestinal Gastrointestinal: Present: hematochezia (none since admission), melena (none since admission). Absent: abdominal pain, bloating, change in bowel habits, constipation, diarrhea, dysphagia, nausea, vomiting - Genitourinary Genitourinary: Absent: abnormal vaginal bleeding, dysuria, flank pain, hematuria , urinary incontinence, vaginal discharge - Musculoskeletal Musculoskeletal: Absent: arthralgias, limited range of motion, myalgias - Neurological Neurological: Absent: abnormal gait, abnormal speech, confusion, dizziness, syncope, tremor(s) - Psychiatric Psychiatric: Absent: anxiety, confusion, depression - Endocrine Endocrine: Present: fatigue. Absent: cold intolerance, heat intolerance - Hematologic/Lymphatic Hematologic/Lymphatic: Absent: easy bleeding, easy bruising Medical,Surgical,& Family Hx - Medical History Cardio: History of: Hypertension No history of: Cardiac Dysrhythmia, CHF, CAD, [place], Pacemaker, Valvular Heart Disease Psychological: No history of: Anxiety Disorders, Depression Neurology: No history of: Dementia, Seizures, TIA HEENT: History of: Dental Problems (poor dentition) No history of: Ear Problem Endocrine: No history of: Diabetes Mellitus (IDDM), Diabetes Mellitus (NIDDM), Dyslipidemia, Thyroid Disorder Rheumatology: No history of;: Gout, Rheumatoid Arthritis, Systemic Lupus Erythematosus Respiratory: History of: Pneumonia No history of: Asthma, Bronchitis, COPD, Intubation, Obstructive Sleep Apnea , Pulmonary Embolism Renal: No history of: Renal Problems Genitourinary: History of: Recurring Urinary Tract Infections Gastrointestinal: History of: GERD, Hemorrhoids, Hematochezia No history of: Esophageal Varices, Hepatitis, Ulcerative Colitis Musculoskeletal: History of: Osteoporosis No history of: Amputation, Degenerative Disk Disease Hematology: No history of: Anemia, Blood Transfusion Reaction Reproductive: History of: Reproductive Problems Other: No history of: Cancer, HIV - Surgical History Cardiac Surgeries: Patient Denies: Cardiac Catheterization Thoracic Surgeries: Patient denies;: Organ Transplant, Lobectomy Neurologic Surgeries: Patient denies: Neurologic Surgery HEENT Surgeries: Patient denies: Tonsilectomy & Adenoidectomy Abdominal Surgeries: Patient denies: Abdominal Surgery, Colonoscopy, EGD Reproductive Surgeries: Surgical HX of;: Gynecologic Surgery, Hysterectomy Patient denies;: Genitourinary Surgery - Family History Family History: Reports;: Family Diabetes (neice), Family Heart Disease, Family Hypertension (mom), Family Stroke (sister) - Social History Smoking Status: Never smoker Frequency of Alcohol Use: None Type of Drug Use: None Physical Examination Vital Signs Temp Pulse Resp BP Pulse Ox 97.4 F L 110 H 20 143/79 89 L 12/24/16 10:52 12/24/16 10:52 12/24/16 10:52 12/24/16 10:52 12/24/16 10:52 General: Present: No Apparent Distress HEENT: Present: PERRL, Normocephaly, Mucus Membranes Dry. Absent: Pallor Neck: Present: Midline Trachea, No JVD/HJR, No Masses, No Bruit Cardiac: Present: Reg Rate and Rhythm, No Murmur Lungs: Present: Decreased Breath Sounds, Oxygen, No Wheeze, Rales, Rhonchi Neuro: Present: Grossly Intact. Absent: Resting Tremor Abdomen: Present: Soft, Active Bowel Sounds. Absent: Tender, Firm, Distended Skin: Present: Clear. Absent: Rash, Suspicious Lesions Musculoskeletal: Present: No Fluid Collection, Normal Range of Motion Extremities: Present: No Clubbing, No Cyanosis, Normal Upper Extr. Pulses (3+ bilaterally), Normal Lower Extr. Pulses (3+ bilaterally), Edema (trace BLE's), Capillary Refill (normal) Result/EKG - Labs CBC & BMP: 12/25/16 04:28 12/25/16 04:28 Lab Results: I have reviewed the past 24 hour labs Labs: Laboratory Results - last 24 hr 12/24/16 12/26/16 15:04 04:25 Free T4 1.46 TSH 3rd Generation 0.374 KEITH Screen Negative (<1:160) SS-A/Ro Antibody < 16 SS-B/La Antibody < 16 Sm (Hall) Antibody Cancelled OFFICE CLINICIAN Antibody Cancelled Double Strand DNA Ab > 200.0 - Diagnostic Findings Procedure: Chest x-ray: image reviewed by me, report reviewed by me - EKG EKG results: interpreted by me, no acute changes EKG shows: sinus rhythm (slightly tachycardic, pulse 90s) Quality Measures - VTE Deep Vein Thrombosis/Pulmonary Embolism Present on Admission: No Contraindication to Pharmacological VTE Prophylaxis: Active Bleeding - Stroke Symptom Onset Unknown: No Nella Hernandez Attila, MD, personally performed the services described in this documentation, ascribed by Fabienne Pickett RN in my presence, and it is both accurate and complete .
[2016-12-26] MEDS: MONTELUKAST 10 MG TABLET PO SCH (22:02)
[2016-12-27] MEDS: methylPREDNISolone SOD SUC 40 MG/1 ML VIAL IV SCH ×2 (04:42→13:30)
[2016-12-27 05:01] LABS: Cyclic Citrull Peptide Ab < 15.6 U
[2016-12-27 05:29] LABS: Calcium 8.8 MG/DL (8.5-10.1); Magnesium 2.8 MG/DL (1.8-2.4); Potassium 3.6 MMOL/L (3.5-5.1)
--- NOTE | 2016-12-27 08:40 | Pulmonology Progress Note ---
Pulmonary - PN: Subj Interval history: The patient is a 61-year-old black lady that came in with some shortness of breath. She has cardiomegaly with small bilateral effusions. She also had a small pericardial effusion. There is not much fluid to tap. She is being evaluated for lupus and other problems. She says she is breathing better and feels a little better at present. She is not having any chest pain. She has not had any fever. She has been feeling better on steroids. Her anti-DNA antibody is positive. So far all her cultures have been negative. Overall she has been feeling better. Exam (Progress Note) - Constitutional Vitals: Period Temp Pulse Resp BP Sys/Hart Pulse Ox Last 24 Hr 96.4 F-98.2 F 76-101 18-20 122-146/64-77 98-100 General appearance: normal weight, no acute distress - Head Head exam: Present: normal inspection, normocephalic - Eye Eye exam: Present: EOMI. Absent: scleral icterus Pupils: Present: MORGAN - ENT ENT exam: Present: normal exam - Neck Neck exam: Present: normal inspection. Absent: lymphadenopathy, thyromegaly - Respiratory Respiratory exam: Present: clear to auscultation bilaterally, other (Her lungs sound reasonably clear at present.). Absent: rales, rhonchi - Cardiovascular Cardiovascular exam: Present: regular rate and rhythm. Absent: gallop, rubs, systolic murmur - GI/Abdominal GI/Abdominal exam: Present: normal bowel sounds, soft. Absent: organomegaly, tenderness - Extremities Exam Extremities exam: Absent: calf tenderness, edema - Neurological Exam Neurological exam: Present: alert, oriented X3, CN II-XII intact - Psychiatric Psychiatric exam: Present: normal affect - Skin Skin exam: Present: warm, dry Results - Labs CBC & BMP: 12/25/16 04:28 12/27/16 04:36 - Diagnostic Findings Procedure: Chest x-ray: image reviewed by me, report reviewed by me (Chest x- ray showed cardiomegaly but not much fluid) Assessment and Plan (1) Acute pleuropericarditis Status: Acute Assessment and plan: The patient is feeling better without any pleurisy or chest pain. She feels like her breathing is better. She is getting antibiotics and steroids. At present she looks comfortable. Current Visit: Yes (2) Positive double stranded DNA antibody test Status: Acute Assessment and plan: She certainly may have lupus. Current Visit: Yes
[2016-12-27] MEDS: METOPROLOL TARTRATE 25 MG TABLET PO SCH ×2 (08:57→20:48)
[2016-12-27] MEDS: PANTOPRAZOLE 40 MG TABLET PO SCH (08:57)
[2016-12-27] MEDS: amLODIPine 10 MG TABLET PO SCH (08:57)
[2016-12-27] MEDS: ASPIRIN EC 81 MG TABLET PO SCH (08:57)
[2016-12-27] MEDS: acetaZOLAMIDE 250 MG TABLET PO SCH ×2 (08:58→20:45)
[2016-12-27] MEDS: hydroCHLOROthiazide 25 MG TABLET PO SCH (08:58)
[2016-12-27] MEDS: CETIRIZINE 10 MG TABLET PO SCH (08:58)
[2016-12-27] MEDS: BENZONATATE 100 MG CAPSULE PO SCH ×3 (08:58→22:02)
[2016-12-27] MEDS: BUDESONIDE/FORMOTEROL 160-4.5 INHALER 6 GM INH SCH (08:59)
[2016-12-27] MEDS: PIPERACILLIN/TAZOBACTAM 3,375 MG in SODIUM CHLORIDE 0.9% 100 ML IV SCH (08:59)
[2016-12-27] MEDS: FLUTICASONE 50 MCG NASAL SPRAY 16 GM BOTTLE BOTH NARES SCH (08:59)
[2016-12-27] MEDS: VANCOMYCIN INJ 1,250 MG in SODIUM CHLORIDE 0.9% 250 ML IV SCH (09:01)
--- NOTE | 2016-12-27 12:33 | Hospitalist Progress Note ---
Assessment and Plan (1) Acute pleuropericarditis Status: Acute Assessment and plan: 1)likely lupus- lupus is most likely cause of her symptoms. She has improved with IV steroids. Wean O2- would like her to be comfortable on room air before discharge if possible. Her anti DS DNA is >200, KEITH screen negative. ANCA very mildly elevated. ESR 110. She has plueropericarditis as her primary lupus symptom. refer to outpatient rheumatology. 2)hypoxia Current Visit: Yes (2) Positive double stranded DNA antibody test Status: Acute Current Visit: Yes (3) Leukocytosis Status: Acute Current Visit: Yes (4) Hematochezia Status: Acute Current Visit: Yes (5) Hypertension Status: Chronic Current Visit: Yes (6) Pericardial effusion Status: Acute Current Visit: Yes Hospitalist: Subjective Interval history: Mrs Hammond continues to feel better a little bit each day. She has been moving around the room with less breathlessness since yesterday. I discussed her lab results with Dr Alfaro who agrees that lupus is the most likely diagnosis and reviewed the results and diagnosis with her also. She is eating ok, no pain. No hot swollen joints, no rashes, no renal disease or hematuria. She has in the past intermittently had swollen MCP joints in her hands, none at this time. Exam - Constitutional Vitals: Period Temp Pulse Resp BP Sys/Hart Pulse Ox Last 24 Hr 96.4 F-98.2 F 71-101 18-20 122-146/60-77 98-100 General appearance: normal weight, no acute distress - Head Head exam: Present: normocephalic, atraumatic - Eye Eye exam: Present: EOMI. Absent: scleral icterus - Respiratory Respiratory exam: Present: clear to auscultation bilaterally - Cardiovascular Cardiovascular exam: Present: regular rate and rhythm - GI/Abdominal GI/Abdominal exam: Present: normal bowel sounds, soft. Absent: tenderness - Extremities Exam Extremities exam: Absent: edema - Neurological Exam Neurological exam: Present: alert, oriented X3 - Skin Skin exam: Present: warm, dry Results - Labs CBC & BMP: 12/25/16 04:28 12/27/16 04:36 Lab Results: I have reviewed the past 24 hour labs Quality Measures - VTE Deep Vein Thrombosis/Pulmonary Embolism Present on Admission: No Contraindication to Pharmacological VTE Prophylaxis: Active Bleeding - Stroke Symptom Onset Unknown: No
[2016-12-27] MEDS: LEVOFLOXACIN 750 MG TABLET PO SCH (13:30)
--- NOTE | 2016-12-27 16:20 | Cardiology Progress Note ---
I, Fabienne Pickett RN, am scribing for, and in the presence of, Chauncey Carmen MD 16 :20. Assessment and Plan - Time spent with patient Time spent with patient: Greater than 30 minutes (1) Pericardial effusion Status: Acute Assessment and plan: 61 year old BF, presenting with pleural and pericardial effusions, SOB, PAT/ PAF. HTN, obesity. Improved with thoracentesis and high dose steroids. Susp. for autoimmune process. Pericardial effusion, PAT/PAF likely due to pericardial/ myocardial involvement. No significant cardiomyopathy or valvular involvement -Cont metoprolol 50 mg BID for rate/rhythm control. BP stable. -PAF. CHADSVASC 2. Cont ASA. I would hold off anticoagulation at this time as she has peric+pleural effusion and recent BRBPR. -Peric effusion. No tamponade. This should improve once her inflammatory disease is better controlled, will need FU echo. -Keep on telemetry. -She will need to follow-up with cardiology in 4-6 weeks. We will need to repeat echo then. She will need to wear an event recorder. If the atrial fibrillation remains recurrent, even after the inflammation resolves, she would be an anticoagulation candidate. 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 SOB and cough is improved today. No CP or other complaint. BP stable. SR 60s per tele monitor, occ PVC. Exam (Progress Note) - Constitutional Vitals: Period Temp Pulse Resp BP Sys/Hart Pulse Ox Last 24 Hr 96.4 F-98.2 F 76-101 18-20 122-146/64-77 98-100 General appearance: over weight - Head Head exam: Present: normal inspection - Eye Eye exam: Absent: conjunctival injection Pupils: Absent: dilated - ENT ENT exam: Present: normal external ear exam - Neck Neck exam: Present: normal inspection - Respiratory Respiratory exam: Present: prolonged expiratory phase, wheezes - Cardiovascular Cardiovascular exam: Present: regular rate and rhythm. Absent: gallop - GI/Abdominal GI/Abdominal exam: Present: normal bowel sounds. Absent: distended - Extremities Exam Extremities exam: Present: normal inspection, normal capillary refill. Absent: edema - Back Exam Back exam: Present: normal inspection - Neurological Exam Neurological exam: Present: alert, oriented X3 - Psychiatric Psychiatric exam: Present: normal affect, normal mood - Skin Skin exam: Present: normal color, warm. Absent: cyanosis Result/EKG - Labs CBC & BMP: 12/25/16 04:28 12/27/16 04:36 Lab Results: I have reviewed the past 24 hour labs Labs: Laboratory Results - last 24 hr 12/24/16 12/27/16 15:04 04:36 Sodium 143 Potassium 3.6 Chloride 107 Carbon Dioxide 31 Anion Gap 8.6 BUN 26 H Creatinine 1.00 GFR Calculation 76 BUN/Creatinine Ratio 26.00 H Glucose 229 H Calculated Osmolality 296.0 Calcium 8.8 Magnesium 2.8 H Cycl Citrul Peptide IgG < 15.6 Anti-Proteinase 3 0.6 H Myeloperoxidase Ab < 0.2 - EKG EKG results: interpreted by me EKG shows: sinus rhythm Quality Measures - VTE Deep Vein Thrombosis/Pulmonary Embolism Present on Admission: No Contraindication to Pharmacological VTE Prophylaxis: Active Bleeding - Stroke Symptom Onset Unknown: No INella Attila, MD, personally performed the services described in this documentation, ascribed by Fabienne Pickett RN in my presence, and it is both accurate and complete 620 .
[2016-12-27] MEDS: MONTELUKAST 10 MG TABLET PO SCH (20:49)
[2016-12-28] MEDS: methylPREDNISolone SOD SUC 40 MG/1 ML VIAL IV SCH ×2 (02:14→13:32)
--- NOTE | 2016-12-28 07:31 | XRay Report ---
History is pericardial effusion and pleural effusion Chest, 2 views Comparison 12/25/2016 The cardiac silhouette remains enlarged There remains small right and tiny left pleural effusion with mild improvement. Patchy and reticular opacities in the lower right chest with additional suspected diaphragm eventration remains but is also slightly improved. Minimal stranding opacities in the left base remain. The upper lung butcher are relatively clear Impression: Mild improvement described above PROCEDURE INTERPRETED AT [facility] DEPARTMENT OF RADIOLOGY Final Report Signed by: Dr. Hellen Llanos
--- NOTE | 2016-12-28 08:31 | Pulmonology Progress Note ---
Pulmonary - PN: Subj Interval history: The patient is a 61-year-old black lady that came in with some shortness of breath. She has cardiomegaly with small bilateral effusions. She also had a small pericardial effusion. There is not much fluid to tap. She is being evaluated for lupus and other problems. She says she is breathing better and feels a little better at present. She is not having any chest pain. She has not had any fever. She says she is not coughing or short of breath now. She says she had a fairly good night. Apparently her O2 saturations are better. Her chest x-ray shows marked cardiomegaly with a slight infiltrate in the right base. Her KEITH is negative but her lksq-rumedy-pbmvptqr DNA is positive. She had a very slight increase in her c-ANCA. Her renal function is normal and she had a little bit of red cells in her urine. Will ask renal to evaluate. Exam (Progress Note) - Constitutional Vitals: Period Temp Pulse Resp BP Sys/Hart Pulse Ox Last 24 Hr 97.0 F-97.8 F 71-92 18-20 125-147/60-74 96-98 Exam: General appearance: normal weight, no acute distress, she looks comfortable sitting up in bed. - Head Head exam: Present: normal inspection, normocephalic - Eye Eye exam: Present: EOMI. Absent: scleral icterus Pupils: Present: MORGAN - ENT ENT exam: Present: normal exam - Neck Neck exam: Present: normal inspection. Absent: lymphadenopathy, thyromegaly - Respiratory Respiratory exam: Present: clear to auscultation bilaterally, other (Her lungs sound reasonably clear at present. She has a minimal decreased breath sounds in the bases.). Absent: rales, rhonchi - Cardiovascular Cardiovascular exam: Present: regular rate and rhythm. Absent: gallop, rubs, systolic murmur - GI/Abdominal GI/Abdominal exam: Present: normal bowel sounds, soft. Absent: organomegaly, tenderness - Extremities Exam Extremities exam: Absent: calf tenderness, edema - Neurological Exam Neurological exam: Present: alert, oriented X3, CN II-XII intact - Psychiatric Psychiatric exam: Present: normal affect - Skin Skin exam: Present: warm, dry Results - Labs CBC & BMP: 12/25/16 04:28 04/06/17 04:36 - Diagnostic Findings Procedure: Chest x-ray: image reviewed by me, report reviewed by me (Chest x- ray shows cardiomegaly with slight increased right lower lobe infiltrate.) Assessment and Plan (1) Acute pleuropericarditis Status: Acute Assessment and plan: The patient is feeling better without any pleurisy or chest pain. She feels like her breathing is better. She is getting antibiotics and steroids. At present she looks comfortable. She continues to feel reasonably well. Current Visit: Yes (2) Positive double stranded DNA antibody test Status: Acute Assessment and plan: She certainly may have lupus. Current Visit: Yes
[2016-12-28] MEDS: acetaZOLAMIDE 250 MG TABLET PO SCH ×2 (09:14→21:31)
[2016-12-28] MEDS: amLODIPine 10 MG TABLET PO SCH (09:14)
[2016-12-28] MEDS: hydroCHLOROthiazide 25 MG TABLET PO SCH (09:14)
[2016-12-28] MEDS: METOPROLOL TARTRATE 25 MG TABLET PO SCH ×2 (09:14→21:32)
[2016-12-28] MEDS: CETIRIZINE 10 MG TABLET PO SCH (09:14)
[2016-12-28] MEDS: BUDESONIDE/FORMOTEROL 160-4.5 INHALER 6 GM INH SCH (09:15)
[2016-12-28] MEDS: ASPIRIN EC 81 MG TABLET PO SCH (09:15)
[2016-12-28] MEDS: FLUTICASONE 50 MCG NASAL SPRAY 16 GM BOTTLE BOTH NARES SCH (09:15)
[2016-12-28] MEDS: PANTOPRAZOLE 40 MG TABLET PO SCH (09:15)
[2016-12-28] MEDS: BENZONATATE 100 MG CAPSULE PO SCH ×3 (09:15→21:32)
--- NOTE | 2016-12-28 13:28 | Hospitalist Progress Note ---
Assessment and Plan (1) Acute pleuropericarditis Status: Acute Assessment and plan: 1)likely lupus- lupus is most likely cause of her symptoms. She has improved with IV steroids. She is doing well on room air so far. Increase activity. Her anti DS DNA is >200, KEITH screen negative. ANCA very mildly elevated and Aakash's is also a possibility though the hematuria more likely from lupus nephritis. ESR 110. hematuria- nephrology to see. She has plueropericarditis as her primary lupus symptom. refer to outpatient rheumatology Dr Lam and PCP Dr Barr 2)hypoxia- resolved 3)hematuria- nephrology to see. ? Aakash's Current Visit: Yes (2) Positive double stranded DNA antibody test Status: Acute Current Visit: Yes (3) Leukocytosis Status: Acute Current Visit: Yes (4) Hematochezia Status: Acute Current Visit: Yes (5) Hypertension Status: Chronic Current Visit: Yes (6) Pericardial effusion Status: Acute Current Visit: Yes Hospitalist: Subjective Interval history: Mrs Hammond is feeling much better today. Her sats are 96% on room air. She was able to walk in the halls earlier today. She still coughs, but less than before. I reveiwed the lab results we have with her so far and answered her questions. I think she is nearing discharge, so I have asked the correction warden and nurse to make her some follow up appointments with rheumatology (Dr Kris Lam) and her new PCP Dr Barr so they will be in place if she goes over the weekend. Nephro to see re:hematuria in light of the positive ANCA. Exam - Constitutional Vitals: Period Temp Pulse Resp BP Sys/Hart Pulse Ox Last 24 Hr 96.7 F-97.4 F 73-92 18-20 125-147/63-74 93-98 General appearance: normal weight, no acute distress - Head Head exam: Present: normocephalic, atraumatic - Eye Eye exam: Present: EOMI. Absent: scleral icterus - Respiratory Respiratory exam: Present: clear to auscultation bilaterally - Cardiovascular Cardiovascular exam: Present: regular rate and rhythm - GI/Abdominal GI/Abdominal exam: Present: normal bowel sounds, soft. Absent: tenderness - Extremities Exam Extremities exam: Absent: edema - Neurological Exam Neurological exam: Present: alert, oriented X3 - Skin Skin exam: Present: warm, dry Results - Labs CBC & BMP: 12/25/16 04:28 12/27/16 04:36 Lab Results: I have reviewed the past 24 hour labs Quality Measures - VTE Deep Vein Thrombosis/Pulmonary Embolism Present on Admission: No Contraindication to Pharmacological VTE Prophylaxis: Active Bleeding - Stroke Symptom Onset Unknown: No Specialty Discharge - Follow Up or Referrals Follow up with: Josse Diaz MD [Physician] - 01/23/17 12:30 pm Kris Lam MD [Physician] - 2 Weeks (new diagnosis of Lupus) Dominic Barr MD [Primary Care Provider] - 01/03/17 1:45 pm
[2016-12-28] MEDS: LEVOFLOXACIN 750 MG TABLET PO SCH (13:31)
--- NOTE | 2016-12-28 14:07 | Cardiology Progress Note ---
Assessment and Plan (1) Pericardial effusion Status: Acute Assessment and plan: 61 year old BF, presenting with pleural and pericardial effusions, SOB, PAT/ PAF. HTN, obesity. Improved with thoracentesis and high dose steroids. Suspicious for lupus. Pericardial effusion, PAT/PAF likely due to pericardial/ myocardial involvement. No significant cardiomyopathy or valvular involvement -Cont metoprolol 50 mg BID for rate/rhythm control. BP stable. -PAF. CHADSVASC 2. Cont ASA. I would hold off anticoagulation at this time as she has peric+pleural effusion and recent BRBPR. -Pericardioal effusion. No tamponade. This should improve once her inflammatory disease is better controlled, will need FU echo. -Keep on telemetry. -She will need to follow-up with cardiology in 4-6 weeks. We will need to repeat echo then. She will need to wear an event recorder. If the atrial fibrillation remains recurrent, even after the inflammation resolves, she would be an anticoagulation candidate. Current Visit: Yes (2) Bilateral pleural effusion Status: Acute Assessment and plan: Status post thoracentesis. Defer further management to pulmonary. Current Visit: Yes (3) Leukocytosis Status: Acute Current Visit: Yes (4) Hematochezia Status: Resolved Assessment and plan: Patient has had no further hematochezia being admitted to [facility]. Stool sample was negative for occult blood. H&H is stable. Current Visit: Yes (5) Hypertension Status: Chronic Assessment and plan: This is clinically stable. Will continue current plan of care. Current Visit: Yes (6) Paroxysmal atrial fibrillation Status: Acute Assessment and plan: Continue metoprolol. CHADSVASC 2. Cont ASA. I would hold off anticoagulation at this time as she has pericardial and pleural effusion and recent bright red blood per rectum. Current Visit: Yes Cardiology - PN: Subj Interval history: Primary supervisor home economics: NONE. PCP: Dr. Carlos ([place]) (Switching to Dr. Barr) Patient was seen and examined on telemetry. Patient was resting in bed in no acute distress. Not requiring oxygen. Patient tells me that she continues to improve daily. She rested well overnight and is without complaints this morning. She denies chest pain, heaviness and tightness. Shortness of breath and cough has continued to improve. Nephrology has been consulted to further evaluate hematuria. Vital signs stable. Patient is currently in normal sinus rhythm with heart rates in the 80s per lunchroom monitor, occasional PVCs noted. Echocardiogram 12/25/16 with LV ejection fraction 65%, unable to determine diastolic dysfunction. Other cardiac chambers of normal size and function. No significant valvular disease. Mild TR with PA pressure 34 mmHg. Small pericardial effusion, 1.5 cm during diastole. No RV collapse seen, and RA not well visualized. Not able to determine hemodynamic significance with data provided. Exam (Progress Note) - Constitutional Vitals: Period Temp Pulse Resp BP Sys/Hart Pulse Ox Last 24 Hr 96.7 F-97.4 F 73-92 18-20 125-147/63-74 93-98 General appearance: no acute distress, over weight - Head Head exam: Present: normal inspection, normocephalic, atraumatic - Neck Neck exam: Present: normal inspection - Respiratory Respiratory exam: Present: clear to auscultation bilaterally, prolonged expiratory phase. Absent: accessory muscle use, rales, rhonchi - Cardiovascular Cardiovascular exam: Present: regular rate and rhythm. Absent: bradycardia, gallop, rubs, tachycardia - GI/Abdominal GI/Abdominal exam: Present: normal bowel sounds, soft. Absent: distended, firm , mass, tenderness - Extremities Exam Extremities exam: Present: normal inspection, normal capillary refill. Absent: calf tenderness, edema - Neurological Exam Neurological exam: Present: alert, oriented X3, normal gait - Psychiatric Psychiatric exam: Present: normal affect, normal mood - Skin Skin exam: Present: normal color, warm, dry. Absent: cyanosis Result/EKG - Labs CBC & BMP: 12/25/16 04:28 12/27/16 04:36 Lab Results: I have reviewed the past 24 hour labs Labs: Laboratory Results - last 24 hr 12/26/16 15:34 Angiotensin Convert Enz 13 Quality Measures - VTE Deep Vein Thrombosis/Pulmonary Embolism Present on Admission: No Contraindication to Pharmacological VTE Prophylaxis: Active Bleeding - Stroke Symptom Onset Unknown: No Specialty Discharge - Follow Up or Referrals Follow up with: Josse Diaz MD [Physician] - 01/23/17 12:30 pm Kris Lam MD [Physician] - 2 Weeks (new diagnosis of Lupus) Dominic Barr MD [Primary Care Provider] - 01/03/17 1:45 pm
--- NOTE | 2016-12-28 16:00 | Nephrology Progress Note ---
Nephrology - PN: Subj Interval history: This note is mistakenly labeled progress note. It is an initial consultation. She is a 61-year-old woman admitted on 12/24/2016 with rectal bleeding CHF and pleural effusions. Workup revealed markedly positive antinative DNA. She is being treated with steroids for presumed lupus. I was asked to see her for positive c-ANCA and hematuria. She states she was being treated for a urinary tract infection at the time of admission. She currently denies dysuria. She feels better overall. She denies flank pain. She's had no gross hematuria. Exam (PN)-Nephrology - Vital Signs Vital signs: Period Temp Pulse Resp BP Sys/Hart Pulse Ox Last 24 Hr 96.7 F-97.7 F 73-92 18-20 122-147/63-74 93-98 Exam: Review of systems is negative except for present illness Gen.: Alert and oriented x3. ENT: Pupils equal round reactive to light. EOMs intact. Mucous membranes moist. Neck: Supple. No JVD or bruit. Cardiovascular: Regular rate and rhythm. No murmur rub or gallop Lungs: Clear Abdomen: Soft. Nontender. Positive bowel sounds. No organomegaly Extremities: No edema - Lab 12/25/16 04:28 12/27/16 04:36 Most recent lab results ABG pH 7.507 (7.35-7.45) H 12/24/16 15:55 ABG pCO2 50.2 MM HG (35-48) H 12/24/16 15:55 ABG pO2 64.8 MM HG (80-95) L 12/24/16 15:55 ABG HCO3 38.9 MMOL/L (20-26) H 12/24/16 15:55 ABG O2 Saturation 92.9 % (95-100) L 12/24/16 15:55 Calcium 8.8 MG/DL (8.5-10.1) 12/27/16 04:36 Magnesium 2.8 MG/DL (1.8-2.4) H 12/27/16 04:36 Assessment and Plan (1) Acute pleuropericarditis Status: Acute Assessment and plan: 61-year-old woman admitted with: * Hematochezia. Resolved * Pleural effusions. Status post thoracentesis. This is thought to be due to pleuritis secondary to lupus. * Pericardial effusion * SLE. Kxfm-esvqmy-wnyhmrmz DNA titer greater than 200. KEITH negative. SSA and SSB negative. P-ANCA negative c-ANCA borderline positive at 0.6 * Hematuria. 16 RBCs noted on urinalysis on the date of admission. She had a Perez catheter present at that time. Urine protein negative. Renal function is normal. I doubt if she has renal involvement from lupus. Urinalysis will be repeated to evaluate microscopic hematuria. C-ANCA is borderline positive. This will be repeated Current Visit: Yes (2) Bilateral pleural effusion Status: Acute Current Visit: Yes (3) Paroxysmal atrial fibrillation Status: Acute Current Visit: Yes (4) Positive double stranded DNA antibody test Status: Acute Current Visit: Yes (5) Congestive heart failure (CHF) Status: Chronic Current Visit: Yes (6) Hypertension Status: Chronic Current Visit: Yes (7) Hematochezia Status: Resolved Current Visit: Yes Specialty Discharge - Follow Up or Referrals Follow up with: Josse Diaz MD [Physician] - 01/23/17 12:30 pm Kris Lam MD [Physician] - 2 Weeks (new diagnosis of Lupus) Dominic Barr MD [Primary Care Provider] - 01/03/17 1:45 pm
[2016-12-28 16:05] LABS: Apearance,Urine Slightly Hazy (Clear); Bacteria,Urine Occasional /HPF (Few); Bilirubin,Urine Negative (Negative); Blood, Urine Negative (Negative); Glucose,Urine (UA) Negative (Negative); Ketones,Urine Negative (Negative); Mucus,Urine Occasional /LPF (Occasional); Nitrite,Urine Negative (Negative); Protein,Urine Negative; RBC,Urine 1 /HPF (0-4); Squamous Epithelial Cell,Urine Occasional /HPF (0-10); Urine Color Straw (Yellow); Urine Specific Gravity 1.011 (1.001-1.035); Urine Urobilinogen < 2.0 EU/DL (0.2-1.0); WBC,Urine 1 /HPF (0-6)
[2016-12-28] MEDS: MONTELUKAST 10 MG TABLET PO SCH (21:33)
[2016-12-29] MEDS: methylPREDNISolone SOD SUC 40 MG/1 ML VIAL IV SCH (00:24)
[2016-12-29 04:26] LABS: Basophils % 0.2 % (0.0-0.8); Hematocrit 35.8 VOL% (35.7-47.0); Hemoglobin 11.1 GM/DL (12.0-16.0); Immature Granulocytes % 5.6 %; Immature Granulocytes Absolute 0.85 #; Lymphocytes # 1.3 10*3/uL (1.4-4.0); Lymphocytes % 8.7 % (21.3-54.2); Mean Corpuscular Hemoglobin 27 PG (27-34); Mean Corpuscular Volume 86.9 FL (87-102); Mean Platelet Volume 8.8 FL (9.6-12.0); Monocytes # 0.6 10*3/uL (0.11-0.8); Monocytes % 3.8 % (1.7-12.7); Neutrophils # 12.4 10*3/uL (1.4-7.4); Neutrophils % 81.7 % (38.7-73.9); Platelet Count 377 T/CUMM (130-400); Red Blood Count 4.12 MC/CUMM (3.8-5.5); Red Cell Distribution Width 15.7 % (9.3-17.3); White Blood Count 15.2 T/CUMM (4-12)
[2016-12-29 04:54] LABS: Calcium 8.9 MG/DL (8.5-10.1); Osmolality,Calculated 297.4 MOS/KG (273-304); Potassium 3.9 MMOL/L (3.5-5.1)
[2016-12-29 05:24] LABS: Hypochromasia 1+; Lymphocytes 10 % (20-55); Microcytosis 1+; Promyelocytes 1 %; Segmented Neutrophils 87 % (50-85); Total Cells Counted 100
[2016-12-29 05:25] LABS: Platelet Estimate Normal
[2016-12-29] MEDS: acetaZOLAMIDE 250 MG TABLET PO SCH ×2 (08:19→20:39)
[2016-12-29] MEDS: ASPIRIN EC 81 MG TABLET PO SCH (08:20)
[2016-12-29] MEDS: DOCUSATE SODIUM 100 MG CAPSULE PO PRN (08:20)
[2016-12-29] MEDS: BENZONATATE 100 MG CAPSULE PO SCH ×3 (08:20→20:38)
[2016-12-29] MEDS: amLODIPine 10 MG TABLET PO SCH (08:20)
[2016-12-29] MEDS: hydroCHLOROthiazide 25 MG TABLET PO SCH (08:21)
[2016-12-29] MEDS: PANTOPRAZOLE 40 MG TABLET PO SCH (08:21)
[2016-12-29] MEDS: FLUTICASONE 50 MCG NASAL SPRAY 16 GM BOTTLE BOTH NARES SCH (08:21)
[2016-12-29] MEDS: METOPROLOL TARTRATE 25 MG TABLET PO SCH ×2 (08:21→20:38)
[2016-12-29] MEDS: CETIRIZINE 10 MG TABLET PO SCH (08:21)
[2016-12-29] MEDS: BUDESONIDE/FORMOTEROL 160-4.5 INHALER 6 GM INH SCH (08:22)
--- NOTE | 2016-12-29 09:26 | Hospitalist Progress Note ---
Assessment and Plan (1) Acute pleuropericarditis Status: Acute Assessment and plan: We'll switch the patient from Solu-Medrol to prednisone and wait for the rest of the workup to come back she probably can go home soon Current Visit: Yes Hospitalist: Subjective Interval history: Patient without complaints today Exam - Constitutional Vitals: Period Temp Pulse Resp BP Sys/Hart Pulse Ox Last 24 Hr 96.7 F-98.2 F 68-104 16-20 122-148/64-79 93-98 Exam: Constitutional: General appearance is normal Eyes: Pupils equal round react to light and accommodation conjunctiva and lids are normal Neck: supple without masses Respiratory: Respiratory effort is normal. Lungs are clear to auscultation. Resonant to percussion. Cardiac: Regular rate and rhythm without murmur rub or gallop. PMI at the midclavicular line by palpation. Carotid arteries 2+ palpation no bruits GI: Bowel sounds normoactive, no tenderness or rebound tenderness, no organomegaly Extremities: no clubbing cyanosis or edema Results - Labs CBC & BMP: 12/29/16 04:13 12/29/16 04:13 Quality Measures - VTE Deep Vein Thrombosis/Pulmonary Embolism Present on Admission: No Contraindication to Pharmacological VTE Prophylaxis: Active Bleeding - Stroke Symptom Onset Unknown: No Specialty Discharge - Follow Up or Referrals Follow up with: Josse Diaz MD [Physician] - 01/23/17 12:30 pm Kris Lam MD [Physician] - 2 Weeks (new diagnosis of Lupus) Dominic Barr MD [Primary Care Provider] - 01/03/17 1:45 pm
[2016-12-29] MEDS: predniSONE 20 MG TABLET PO SCH (10:24)
--- NOTE | 2016-12-29 10:50 | Pulmonology Progress Note ---
Pulmonary - PN: Subj Interval history: This is a 61-year-old female whom I am seeing for . This patient had pleural and pericardial effusions and was also thought to have pneumonia. Interventional radiology got 5 cc of with thoracentesis. Pericardial effusion is felt to be fairly small. Cause is uncertain but is thought it could be rheumatological or autoimmune. The patient says her breathing is better since she had a thoracentesis. Check last chest x-ray was done 12/28/2016. Patient has cardiomegaly. She has small bilateral pleural effusions. Sputum has shown Tiara albicans. Urinalysis is normal. Electrolytes normal. Creatinine is increased from 0.7- 1.2 white count is 15,282% segs platelets are 377,000 H&H 11.1/35.8. Labs been reviewed. Medicines were reviewed. Physical exam. Vital signs. See below. There is been no fever. O2 sats on room air have been 96 and 97% Psychiatric oriented 3. General. Sitting beside the bed. Comfortable. No apparent distress. Neurologic. Cranial nerves are intact. Long track motor functions intact. Face is symmetrical. I see no abnormalities of the lip of the tongue Neck. Symmetrical. No meningismus. Lymphatics. No submandibular cervical supraclavicular adenopathy. Chest clear Heart. Regular. No rub. Abdomen. Nontender positive bowel sounds Extremities. No significant edema nothing to suggest deep venous thrombophlebitis The remainder of the physical exam is noncontributory. Plan. 1. Continue present medicines 2. Repeat chest x-ray Exam (Progress Note) - Constitutional Vitals: Period Temp Pulse Resp BP Sys/Hart Pulse Ox Last 24 Hr 96.7 F-98.2 F 68-104 16-20 122-148/64-79 93-98 Results - Labs CBC & BMP: 12/29/16 04:13 12/29/16 04:13 Specialty Discharge - Follow Up or Referrals Follow up with: Josse Diaz MD [Physician] - 01/23/17 12:30 pm Kris Lam MD [Physician] - 2 Weeks (new diagnosis of Lupus) Dominic Barr MD [Primary Care Provider] - 01/03/17 1:45 pm
[2016-12-29] MEDS: LEVOFLOXACIN 750 MG TABLET PO SCH (12:10)
--- NOTE | 2016-12-29 12:27 | Cardiology Progress Note ---
Assessment and Plan (1) Pericardial effusion Status: Acute Assessment and plan: 61 year old BF, presenting with pleural and pericardial effusions, SOB, PAT/ PAF. HTN, obesity. Improved with thoracentesis and high dose steroids. Susp. for autoimmune process. Pericardial effusion, PAT/PAF likely due to pericardial/ myocardial involvement. No significant cardiomyopathy or valvular involvement -Cont metoprolol 50 mg BID for rate/rhythm control. BP stable. -PAF. CHADSVASC 2. Cont ASA. I would hold off anticoagulation at this time as she had peric+pleural effusion and recent BRBPR. -Peric effusion. No tamponade. This should improve once her inflammatory disease is better controlled. -Keep on telemetry. -She will need to follow-up with cardiology in 4-6 weeks. On discharge, will set up a 30 day event recorder and FU echo. Current Visit: Yes (2) Dyspnea Status: Resolved Current Visit: Yes (3) Congestive heart failure (CHF) Status: Chronic Current Visit: Yes (4) Hypertension Status: Chronic Current Visit: Yes (5) Bilateral pleural effusion Status: Acute Current Visit: Yes (6) Leukocytosis Status: Acute Current Visit: Yes (7) Hematochezia Status: Resolved Current Visit: Yes Cardiology - PN: Subj Interval history: She is feeling better. Sporadic atrial ectopy, no recent A. fib. Exam (Progress Note) - Constitutional Vitals: Period Temp Pulse Resp BP Sys/Hart Pulse Ox Last 24 Hr 96.7 F-98.2 F 68-104 16-20 122-148/64-79 96-98 General appearance: no acute distress, over weight - Head Head exam: Present: normal inspection, atraumatic - Eye Eye exam: Absent: conjunctival injection Pupils: Absent: dilated - ENT ENT exam: Present: normal external ear exam - Neck Neck exam: Present: normal inspection - Respiratory Respiratory exam: Present: clear to auscultation bilaterally. Absent: prolonged expiratory phase - Cardiovascular Cardiovascular exam: Present: regular rate and rhythm - GI/Abdominal GI/Abdominal exam: Present: normal bowel sounds. Absent: distended - Extremities Exam Extremities exam: Present: normal inspection, normal capillary refill. Absent: edema - Back Exam Back exam: Present: normal inspection - Neurological Exam Neurological exam: Present: alert, oriented X3 - Psychiatric Psychiatric exam: Present: normal affect, normal mood - Skin Skin exam: Present: normal color, warm. Absent: cyanosis Result/EKG - Labs CBC & BMP: 12/29/16 04:13 12/29/16 04:13 Lab Results: I have reviewed the past 24 hour labs Labs: Laboratory Results - last 24 hr 12/28/16 12/29/16 12/29/16 15:34 04:13 04:13 WBC 15.2 H RBC 4.12 Hgb 11.1 L Hct 35.8 MCV 86.9 L MCH 27 MCHC 31.0 L RDW 15.7 Plt Count 377 MPV 8.8 L Neut % (Auto) 81.7 H Lymph % (Auto) 8.7 L [place] % (Auto) 3.8 Eos % (Auto) 0.0 Baso % (Auto) 0.2 Neut # (Auto) 12.4 H Lymph # (Auto) 1.3 L [place] # (Auto) 0.6 Eos # (Auto) 0.0 Baso # (Auto) 0.0 Total Counted 100 Immature Gran % 5.6 Nucleated RBC % 0.0 Immature Gran # 0.85 Segmented Neutrophils 87 H Lymphocytes 10 L Monocytes 2 Promyelocytes 1 Nucleated RBCs # 0.00 Platelet Estimate Normal Hypochromasia 1+ Microcytosis 1+ Sodium 140 Potassium 3.9 Chloride 106 Carbon Dioxide 27 Anion Gap 10.9 BUN 35 H Creatinine 1.20 H GFR Calculation 60 BUN/Creatinine Ratio 29.00 H Glucose 288 H Calculated Osmolality 297.4 Calcium 8.9 Urine Color Straw Urine Appearance Slightly hazy Urine pH 5.0 Ur Specific [place] 1.011 Urine Protein Negative Urine Glucose (UA) Negative Urine Ketones Negative Urine Blood Negative Urine Nitrate Negative Urine Bilirubin Negative Urine Urobilinogen < 2.0 H Urine Leukocytes Negative Urine RBC 1 Urine WBC 1 Ur Squamous Epith Cells Occasional Urine Bacteria Occasional Urine Mucus Occasional Ur Culture Indicated? Not indicated - EKG EKG results: interpreted by me Quality Measures - VTE Deep Vein Thrombosis/Pulmonary Embolism Present on Admission: No Contraindication to Pharmacological VTE Prophylaxis: Active Bleeding - Stroke Symptom Onset Unknown: No Specialty Discharge - Follow Up or Referrals Follow up with: Josse Diaz MD [Physician] - 01/23/17 12:30 pm Kris Lam MD [Physician] - 2 Weeks (new diagnosis of Lupus) Dominic Barr MD [Primary Care Provider] - 01/03/17 1:45 pm - Speciality Discharge Instructions Cardiology Instructions: FU with dr. Carmen. Set up 30 day event recorder on discharge. Check TTE prior to FU visit, in 6 weeks
--- NOTE | 2016-12-29 13:29 | Nephrology Progress Note ---
Nephrology - PN: Subj Interval history: Ms. Hammond is seen in follow-up of her lupus. She has a benign urine sediment as detailed by Dr. Garza and her creatinine is 1.0. Her chest is clear she has no peripheral edema. She is tearful sitting at the bedside eating lunch and interacting with visitors. It does not appear that she has renal involvement with this autoimmune process. Exam (PN)-Nephrology - Vital Signs Vital signs: Period Temp Pulse Resp BP Sys/Hart Pulse Ox Last 24 Hr 96.7 F-98.2 F 66-104 16-20 114-148/60-79 96-98 - Lab 12/29/16 04:13 12/29/16 04:13 Most recent lab results ABG pH 7.507 (7.35-7.45) H 12/24/16 15:55 ABG pCO2 50.2 MM HG (35-48) H 12/24/16 15:55 ABG pO2 64.8 MM HG (80-95) L 12/24/16 15:55 ABG HCO3 38.9 MMOL/L (20-26) H 12/24/16 15:55 ABG O2 Saturation 92.9 % (95-100) L 12/24/16 15:55 Calcium 8.9 MG/DL (8.5-10.1) 12/29/16 04:13 Magnesium 2.8 MG/DL (1.8-2.4) H 12/27/16 04:36 Specialty Discharge - Follow Up or Referrals Follow up with: Josse Diaz MD [Physician] - 01/23/17 12:30 pm Kris Lam MD [Physician] - 2 Weeks (new diagnosis of Lupus) Dominic Barr MD [Primary Care Provider] - 01/03/17 1:45 pm
[2016-12-29] MEDS: MONTELUKAST 10 MG TABLET PO SCH (20:39)
--- NOTE | 2016-12-30 08:05 | Hospitalist Progress Note ---
Assessment and Plan (1) Acute pleuropericarditis Status: Acute Assessment and plan: We'll switch the patient from Solu-Medrol to prednisone and wait for the rest of the workup to come back she probably can go home soon 12/30 discussed discharged today she's not quite ready she thinks Current Visit: Yes Hospitalist: Subjective Interval history: Patient says she feels better today she's up and moving around we discussed discharge today she says she's not quite ready Exam - Constitutional Vitals: Period Temp Pulse Resp BP Sys/Hart Pulse Ox Last 24 Hr 96.5 F-97.6 F 62-90 14-20 114-136/60-69 97-100 Exam: Constitutional: General appearance is normal Eyes: Pupils equal round react to light and accommodation conjunctiva and lids are normal Neck: supple without masses Respiratory: Respiratory effort is normal. Lungs are clear to auscultation. Resonant to percussion. Cardiac: Regular rate and rhythm without murmur rub or gallop. PMI at the midclavicular line by palpation. Carotid arteries 2+ palpation no bruits GI: Bowel sounds normoactive, no tenderness or rebound tenderness, no organomegaly Extremities: no clubbing cyanosis or edema Results - Labs CBC & BMP: 12/29/16 04:13 12/29/16 04:13 Quality Measures - VTE Deep Vein Thrombosis/Pulmonary Embolism Present on Admission: No Contraindication to Pharmacological VTE Prophylaxis: Active Bleeding - Stroke Symptom Onset Unknown: No Specialty Discharge - Follow Up or Referrals Follow up with: Josse Diaz MD [Physician] - 01/23/17 12:30 pm Kris Lam MD [Physician] - 2 Weeks (new diagnosis of Lupus) Dominic Barr MD [Primary Care Provider] - 01/03/17 1:45 pm
[2016-12-30] MEDS: amLODIPine 10 MG TABLET PO SCH (08:30)
[2016-12-30] MEDS: hydroCHLOROthiazide 25 MG TABLET PO SCH (08:30)
[2016-12-30] MEDS: DOCUSATE SODIUM 100 MG CAPSULE PO PRN (08:30)
[2016-12-30] MEDS: METOPROLOL TARTRATE 25 MG TABLET PO SCH ×2 (08:31→20:59)
[2016-12-30] MEDS: BENZONATATE 100 MG CAPSULE PO SCH ×3 (08:31→20:58)
[2016-12-30] MEDS: ASPIRIN EC 81 MG TABLET PO SCH (08:31)
[2016-12-30] MEDS: PANTOPRAZOLE 40 MG TABLET PO SCH (08:31)
[2016-12-30] MEDS: CETIRIZINE 10 MG TABLET PO SCH (08:31)
[2016-12-30] MEDS: predniSONE 20 MG TABLET PO SCH (08:31)
[2016-12-30] MEDS: FLUTICASONE 50 MCG NASAL SPRAY 16 GM BOTTLE BOTH NARES SCH (08:31)
[2016-12-30] MEDS: BUDESONIDE/FORMOTEROL 160-4.5 INHALER 6 GM INH SCH (08:32)
--- NOTE | 2016-12-30 09:39 | XRay Report ---
XR chest 2V Indication: Pleural effusion. Chest 2 views: Comparison 2 days ago shows a tiny posterior left pleural effusion versus pleural thickening, stable. Right pleural space appears clear. Right hemidiaphragm is elevated. Heart size is borderline enlarged but stable. No new infiltrates are shown. Impression: No change from 2 days ago. Stable tiny left pleural effusion or pleural thickening. PROCEDURE INTERPRETED AT [facility] DEPARTMENT OF RADIOLOGY Final Report Signed by: Ernie Balderas M.D.
--- NOTE | 2016-12-30 10:26 | Pulmonology Progress Note ---
Pulmonary - PN: Subj Interval history: This is a 61-year-old female whom I am seeing for . This patient had pleural and pericardial effusions and was also thought to have pneumonia. Interventional radiology got 5 cc of with thoracentesis. Pericardial effusion is felt to be fairly small. Cause is uncertain but is thought it could be rheumatological or autoimmune. The patient says her breathing is better since she had a thoracentesis. Check last chest x-ray was done 12/28/2016. Patient has cardiomegaly. She has small bilateral pleural effusions. Sputum has shown Tiara albicans. Urinalysis is normal. Electrolytes normal. Creatinine is increased from 0.7- 1.2 white count is 15,282% segs platelets are 377,000 H&H 11.1/35.8. 12/30/2016. This patient had a stable night she has no new requests. Patient is taking her Symbicort inhaler improperly and I showed her how to do this properly. Chest x-ray shows a tiny amount of left pleural effusion. I see no other abnormality. Sputum was positive for Tiara albicans. Electrolytes are normal. CBC is stable. Labs been reviewed. Medicines were reviewed. Physical exam. Vital signs. See below. There is been no fever. O2 sats on room air have been 96 and 97% Psychiatric oriented 3. General. Sitting beside the bed. Comfortable. No apparent distress. Neurologic. Cranial nerves are intact. Long track motor functions intact. Face is symmetrical. I see no abnormalities of the lip of the tongue Neck. Symmetrical. No meningismus. Lymphatics. No submandibular cervical supraclavicular adenopathy. Chest clear Heart. Regular. No rub. Abdomen. Nontender positive bowel sounds Extremities. No significant edema nothing to suggest deep venous thrombophlebitis The remainder of the physical exam is noncontributory. Plan. 1. Continue present medicines #2. 07/01/2017. See my note Exam (Progress Note) - Constitutional Vitals: Period Temp Pulse Resp BP Sys/Hart Pulse Ox Last 24 Hr 96.3 F-97.6 F 62-90 14-20 114-136/60-77 97-100 Results - Labs CBC & BMP: 12/29/16 04:13 12/29/16 04:13 Specialty Discharge - Follow Up or Referrals Follow up with: Josse Diaz MD [Physician] - 01/23/17 12:30 pm Kris Lam MD [Physician] - 2 Weeks (new diagnosis of Lupus) Dominic Barr MD [Primary Care Provider] - 01/03/17 1:45 pm
--- NOTE | 2016-12-30 11:44 | Nephrology Progress Note ---
Nephrology - PN: Subj Interval history: Ms. Hammond is seen in follow-up of her presumed autoimmune process. Creatinine is 1.2 and BUN 35. Electrolytes are unremarkable. Her hematocrit is 36 and white count 15,000. Urinalysis is without proteinuria. Active renal involvement seems unlikely. Her chest is clear and she has no complaint Exam (PN)-Nephrology - Vital Signs Vital signs: Period Temp Pulse Resp BP Sys/Hart Pulse Ox Last 24 Hr 96.3 F-97.6 F 62-90 14-20 114-136/60-77 97-100 - Lab 12/29/16 04:13 12/29/16 04:13 Most recent lab results ABG pH 7.507 (7.35-7.45) H 12/24/16 15:55 ABG pCO2 50.2 MM HG (35-48) H 12/24/16 15:55 ABG pO2 64.8 MM HG (80-95) L 12/24/16 15:55 ABG HCO3 38.9 MMOL/L (20-26) H 12/24/16 15:55 ABG O2 Saturation 92.9 % (95-100) L 12/24/16 15:55 Calcium 8.9 MG/DL (8.5-10.1) 12/29/16 04:13 Magnesium 2.8 MG/DL (1.8-2.4) H 12/27/16 04:36 Specialty Discharge - Follow Up or Referrals Follow up with: Josse Diaz MD [Physician] - 01/23/17 12:30 pm Kris Lam MD [Physician] - 2 Weeks (new diagnosis of Lupus) Dominic Barr MD [Primary Care Provider] - 01/03/17 1:45 pm
[2016-12-30] MEDS: LEVOFLOXACIN 750 MG TABLET PO SCH (12:54)
--- NOTE | 2016-12-30 13:00 | Cardiology Progress Note ---
Assessment and Plan (1) Pericardial effusion Status: Acute Assessment and plan: 61 year old BF, presenting with pleural and pericardial effusions, SOB, PAT/ PAF. HTN, obesity. Improved with thoracentesis and high dose steroids. Susp. for autoimmune process. Pericardial effusion, PAT/PAF likely due to pericardial/ myocardial involvement. No significant cardiomyopathy or valvular involvement -Cont metoprolol 50 mg BID for rate/rhythm control. BP stable. -PAF. CHADSVASC 2. Cont ASA. I would hold off anticoagulation at this time as she had peric+pleural effusion and recent BRBPR. -Peric effusion. No tamponade. This should improve once her inflammatory disease is better controlled. -Keep on telemetry. -She will need to follow-up with cardiology in 4-6 weeks. On discharge, set up a 30 day event recorder and FU echo. Current Visit: Yes (2) Dyspnea Status: Resolved Current Visit: Yes (3) Congestive heart failure (CHF) Status: Chronic Current Visit: Yes (4) Hypertension Status: Chronic Current Visit: Yes (5) Bilateral pleural effusion Status: Acute Current Visit: Yes (6) Leukocytosis Status: Acute Current Visit: Yes (7) Hematochezia Status: Resolved Current Visit: Yes Cardiology - PN: Subj Interval history: No atrial fibrillation. She is feeling better. Exam (Progress Note) - Constitutional Vitals: Period Temp Pulse Resp BP Sys/Hart Pulse Ox Last 24 Hr 96.3 F-98.4 F 62-90 14-20 116-136/63-77 97-100 General appearance: no acute distress, over weight - Head Head exam: Present: normal inspection, normocephalic - Eye Eye exam: Absent: conjunctival injection Pupils: Absent: dilated - ENT ENT exam: Present: normal external ear exam - Neck Neck exam: Present: normal inspection. Absent: tenderness - Respiratory Respiratory exam: Present: clear to auscultation bilaterally - Cardiovascular Cardiovascular exam: Present: regular rate and rhythm - GI/Abdominal GI/Abdominal exam: Present: normal bowel sounds. Absent: distended - Extremities Exam Extremities exam: Present: normal inspection, normal capillary refill. Absent: edema - Back Exam Back exam: Present: normal inspection - Neurological Exam Neurological exam: Present: alert, oriented X3 - Psychiatric Psychiatric exam: Present: normal affect, normal mood - Skin Skin exam: Present: normal color, warm. Absent: cyanosis Result/EKG - Labs CBC & BMP: 12/29/16 04:13 12/29/16 04:13 Lab Results: I have reviewed the past 24 hour labs - EKG EKG results: interpreted by me Quality Measures - VTE Deep Vein Thrombosis/Pulmonary Embolism Present on Admission: No Contraindication to Pharmacological VTE Prophylaxis: Active Bleeding - Stroke Symptom Onset Unknown: No Specialty Discharge - Follow Up or Referrals Follow up with: Josse Diaz MD [Physician] - 01/23/17 12:30 pm Kris Lam MD [Physician] - 2 Weeks (new diagnosis of Lupus) Dominic Barr MD [Primary Care Provider] - 01/03/17 1:45 pm
[2016-12-30 14:03] LABS: c-ANCA Negative (Negative); p-ANCA Negative (Negative)
[2016-12-30] MEDS: MONTELUKAST 10 MG TABLET PO SCH (20:58)
[2016-12-31 04:42] LABS: Basophils % 0.1 % (0.0-0.8); Eosinophils % 0.2 % (0.00-10.9); Hematocrit 36.5 VOL% (35.7-47.0); Hemoglobin 11.4 GM/DL (12.0-16.0); Immature Granulocytes % 5.2 %; Immature Granulocytes Absolute 0.75 #; Lymphocytes # 2.1 10*3/uL (1.4-4.0); Lymphocytes % 14.6 % (21.3-54.2); Mean Corpuscular HGB Conc 31.2 GM/DL (32-36); Mean Corpuscular Hemoglobin 27 PG (27-34); Mean Corpuscular Volume 86.1 FL (87-102); Monocytes # 0.8 10*3/uL (0.11-0.8); Monocytes % 5.3 % (1.7-12.7); Neutrophils # 10.7 10*3/uL (1.4-7.4); Neutrophils % 74.6 % (38.7-73.9); Platelet Count 338 T/CUMM (130-400); Red Blood Count 4.24 MC/CUMM (3.8-5.5); Red Cell Distribution Width 15.8 % (9.3-17.3); White Blood Count 14.4 T/CUMM (4-12)
[2016-12-31 05:15] LABS: Calcium 8.7 MG/DL (8.5-10.1); Potassium 3.6 MMOL/L (3.5-5.1)
[2016-12-31 05:21] LABS: Hypochromasia 1+; Lymphocytes 14 % (20-55); Microcytosis 1+; Segmented Neutrophils 83 % (50-85); Total Cells Counted 100
[2016-12-31 05:22] LABS: Platelet Estimate Normal
[2016-12-31 07:59] VITALS: BP 129/67
--- NOTE | 2016-12-31 08:02 | Pulmonology Progress Note ---
Pulmonary - PN: Subj Interval history: This 61-year-old black female came in with shortness of breath. An outside CT done in [place] day before yesterday indicate bilateral pleural effusions and looks to me like she has a significant pericardial effusion as well. She set up for a thoracentesis ultrasound-guided today. She has had markers for rheumatologic disorders. She is not febrile. An echocardiogram is pending. We may need to have cardiology to see her to see if she needs a pericardiocentesis or other evaluation of pericardial effusion. We will let the echocardiogram tell us that. 12/26/2016 the echocardiogram showed a small pericardial effusion. Left thoracentesis only obtained about 5 cc of fluid per interventional radiology. Patient has an elevated sed rate. This is suggestive of an inflammatory, autoimmune, rheumatologic, or infectious process. Await further serologic studies. Patient has elevated PCO2 and metabolic alkalosis. We will try on some Diamox. Agree with empiric antibiotics for now. Recheck x-ray Saturday. 12/31/2016 patient is better with steroids and empiric antibiotics. From my standpoint the pleuropericarditis would appear to be either lupus or possibly viral. The lupus studies are not in agreement with each other. However she has gotten better with steroids. I would recommend having her see a credit clerk soon after discharge to decide where to go from here with her medications. Exam (Progress Note) - Constitutional Vitals: Period Temp Pulse Resp BP Sys/Hart Pulse Ox Last 24 Hr 96.7 F-98.4 F 72-93 16-20 116-133/62-71 90-100 Exam: Patient's alert oriented vital signs are normal. Pupils react to light. Throat is clear. Neck supple no bruits. Chest reveals clear breath sounds bilaterally. Heart normal rate and rhythm I do not hear any murmurs or rubs. Abdomen is soft nontender no masses. Extremities she has trace to 1+ peripheral edema. Calves nontender. Results - Labs CBC & BMP: 12/31/16 04:25 12/31/16 04:25 Lab Results: I have reviewed the past 24 hour labs Assessment and Plan (1) Hematochezia Status: Resolved Assessment and plan: This will need to be worked up by GI. She needs a colonoscopy at some point. 12/25/2016 she will need a colonoscopy for the hematochezia at some point. 12/26/2016 agree with plans to evaluate with colonoscopy. 12/31/16 defer to GI. Current Visit: Yes (2) Bilateral pleural effusion Status: Acute Assessment and plan: She had a normal chest x-ray by report 2 months ago at [facility]. Now with bilateral pleural effusions. I would be concerned about fluid overload or congestive heart failure. Agree with evaluation for inflammatory causes of effusions. She had an outside CT scan. I can see a report but not the films. We will attempt to get the films put in the computer so we will have to repeat the CT. need to be sure there is enough fluid to safely tap 12/25/2016 she is to have a thoracentesis with ultrasound guidance by interventional radiology today. 12/26/2016 only a small amount of fluid obtained with thoracentesis. She has a pericardial effusion and bilateral pleural effusions. Look for inflammatory, infectious, autoimmune, rheumatologic causes. 12/31/16 pleural fluid has decreased. Inflammatory versus autoimmune. Current Visit: Yes (3) Congestive heart failure (CHF) Status: Chronic Assessment and plan: Need to get echocardiogram and BNP 12/25/2016 it appears that she has pericardial fluid on her outside CT. That was not available for viewing yesterday. Echocardiogram is pending. 12/26/2016 BNP has not significantly elevated. Echocardiogram showed normal LV function with small pericardial effusion. 12/31/16 no signs of heart failure at present. Current Visit: Yes Specialty Discharge - Follow Up or Referrals Follow up with: Josse Diaz MD [Physician] - 01/23/17 12:30 pm Kris Lam MD [Physician] - 2 Weeks (new diagnosis of Lupus) Dominic Barr MD [Primary Care Provider] - 01/03/17 1:45 pm
[2016-12-31] MEDS: amLODIPine 10 MG TABLET PO SCH (09:12)
[2016-12-31] MEDS: BENZONATATE 100 MG CAPSULE PO SCH (09:12)
[2016-12-31] MEDS: ASPIRIN EC 81 MG TABLET PO SCH (09:12)
[2016-12-31] MEDS: PANTOPRAZOLE 40 MG TABLET PO SCH (09:13)
[2016-12-31] MEDS: hydroCHLOROthiazide 25 MG TABLET PO SCH (09:13)
[2016-12-31] MEDS: CETIRIZINE 10 MG TABLET PO SCH (09:13)
[2016-12-31] MEDS: predniSONE 20 MG TABLET PO SCH (09:13)
[2016-12-31] MEDS: METOPROLOL TARTRATE 25 MG TABLET PO SCH (09:13)
[2016-12-31] MEDS: FLUTICASONE 50 MCG NASAL SPRAY 16 GM BOTTLE BOTH NARES SCH (09:14)
[2016-12-31] MEDS: BUDESONIDE/FORMOTEROL 160-4.5 INHALER 6 GM INH SCH (09:14)
--- NOTE | 2016-12-31 09:23 | Discharge Summary ---
Hospital Course - Hospital Course Hospital Course: 61 yo black female non productive cough for 5 years, pneumonia and persistent bilateral pleural effusion. Dr. Ceballos diagnosed her with alllergies and started her on singulair and symbicort. She presented to [facility] with BRBPR for two days. Her BNP and WBC were elevated. Her Chest ct showed CHF, no PE and again bilateral pleural effusions. Thoracentesis was performed by Dr. Balderas on November 23, 2016 yielding only 5 mL's of fluid. I did not see any cultures. Dr. High was concerned about potential autoimmune disease and ordered an Echo, ESR, KEITH, ANCA and started her on vancomycin and Zosyn. This was eventually switched over to Levaquin 750. Blood cultures 2 were negative no growth, stool fecal occult blood was negative, urine culture negative and sputum culture growing Tiara albicans. Her CCP was less than 15.6, KEITH less than 1 10/24/1960, c-ANCA negative, anti-proteinase 3 0.6, p-ANCA negative, myeloperoxidase antibody less than 0.2, SSA less than 16, SSB less than 16, double-stranded DNA greater than 200. Dr. Joe Carmen were both consulted. Echocardiogram showed an EF of 65% with a small pericardial effusion and a PAP of 34. Pericardial effusion thought to be secondary to lupus. Patient will receive Levaquin for 7 more days and a slow steroid taper. We are sending her up to see Dr. Kris Lam from rheumatology in [place] for further evaluation and initiation of treatment. His creatinine is 1.2. Cardiology would like to see her in 4-6 weeks. She is supposed to have an event monitor for 30 days and a follow-up echo on discharge. Patient had acute diastolic congestive heart failure exacerbation that was new onset. Dr. Diaz will continue to follow her as an outpatient. Patient has requested a change in her primary care physician is Dr. Barr. - Time spent with patient Time with patient DS: Greater than 30 minutes (60 min) Specialty Discharge - Follow Up or Referrals Follow up with: Josse Diaz MD [Physician] - 01/23/17 12:30 pm Kris Lam MD [Physician] - 2 Weeks (new diagnosis of Lupus) Dominic Barr MD [Primary Care Provider] - 01/03/17 1:45 pm Discharge Plan - Discharge Data Disposition: Disch To Home/Self Care Condition at Discharge: Stable Discharge Diet: heart healthy Activity: resume usual activities as tolerated Hygiene: no restrictions Weight Bearing at Discharge: full weight bearing Contact your physician if you experience:: fever over 101 - Discharge Medications New Levofloxacin Tab [Levaquin Tab] 750 mg PO Q24H #7 tablet Metoprolol Tartrate Tab [Lopressor Tab] 50 mg PO BID #60 tablet HYDROcodone/ACETAMIN 5-325 [[place] 5-325] 1 tablet PO Q4H PRN #30 tablet PRN Reason: Pain Mild (1-3) Potassium Chloride Cap/Tab [[place] Dur] 20 meq PO DAILY #30 tablet Continue Albuterol Inhaler [Proventil Inhaler] 2 puffs INH Q6HR PRN PRN Reason: Wheezing amLODIPine [Norvasc] 10 mg PO DAILY Benzonatate 200 mg PO TID Omeprazole 40 mg PO DAILY Fluticasone 50 Mcg Nasal [place] [Flonase Nasal [place]] 1 spray BOTH NARES DAILY Cetirizine HCl [Cetirizine Tab] 10 mg PO DAILY Aspirin [Ecotrin] 81 mg PO DAILY Montelukast Tab [Singulair Tab] 10 mg PO BEDTIME predniSONE TAB [PredniSONE] 20 mg PO DAILY #60 tablespoon hydroCHLOROthiazide [Hydrochlorothiazide] 25 mg PO DAILY Budesonide/Formoterol 160-4.5 [Symbicort 160-4.5] 2 puffs INH DAILY #1 puffs - Follow Up or Referral Follow Up: Josse Diaz MD [Physician] - 01/23/17 12:30 pm Kris Lam MD [Physician] - 2 Weeks (new diagnosis of Lupus) Dominic Barr MD [Primary Care Provider] - 01/03/17 1:45 pm Chauncey Carmen MD [Physician] - 1 Month - Forms/Instructions Instructions: Lupus Erythematosus (DC) Additional Discharge Instructions: needs 30 even monitor on discharge. repeat echo in 4 to 6 weeks Exam - Constitutional Vitals: Period Temp Pulse Resp BP Sys/Hart Pulse Ox Last 24 Hr 96.7 F-98.4 F 72-93 16-20 116-133/62-71 90-100 Exam: Heart Rate-[RRR] Lungs-[CTAB] GI-[+bs soft, NT] Ext-[no edema] Neuro [Motor 5/5], [alert and oriented times 3] psych [normal mood and affect] General [no acute distress] Discharge Results Procedures and tests throughout hospitalization: Pending Orders 12/24/16 15:31 Cytology Request Routine 12/25/16 15:31 Occult Blood, Stool Stat 12/28/16 14:31 ANCA Panel for Vasculitis Routine Labs on day of discharge: Labs from last 24 hours 12/31/16 12/31/16 12/24/16 04:25 04:25 15:04 WBC 14.4 H RBC 4.24 Hgb 11.4 L Hct 36.5 MCV 86.1 L MCH 27 MCHC 31.2 L RDW 15.8 Plt Count 338 MPV 9.0 L Neut % (Auto) 74.6 H Lymph % (Auto) 14.6 L [place] % (Auto) 5.3 Eos % (Auto) 0.2 Baso % (Auto) 0.1 Neut # (Auto) 10.7 H Lymph # (Auto) 2.1 [place] # (Auto) 0.8 Eos # (Auto) 0.0 Baso # (Auto) 0.0 Total Counted 100 Immature Gran % 5.2 Nucleated RBC % 0.0 Immature Gran # 0.75 Segmented Neutrophils 83 Lymphocytes 14 L Monocytes 3 Nucleated RBCs # 0.00 Platelet Estimate Normal Hypochromasia 1+ Microcytosis 1+ Morphology Comment Sodium 143 Potassium 3.6 Chloride 107 Carbon Dioxide 28 Anion Gap 11.6 BUN 33 H Creatinine 1.20 H GFR Calculation 61 BUN/Creatinine Ratio 27.00 H Glucose 204 H Calculated Osmolality 297.0 Calcium 8.7 Cycl Citrul Peptide IgG < 15.6 c-ANCA Negative Anti-Proteinase 3 0.6 H p-ANCA Negative Myeloperoxidase Ab < 0.2 DS: Provider Date of admission: 12/24/16 10:32 Primary care physician: Dominic Barr MD Attending physician on admission: Marissa High MD Consults: 12/24/16 11:25 Consult to Dietitian [CONS] Routine Reason for Dietitian: Dietary Consult Consult to Pastoral Services [CONS] Routine Comment: Pastoral Screen: Request Supervisor Shearing Visit Name of Physician Requesting: patient 12/24/16 11:33 Consult to Pharmacy [CONS] Routine Reason for Pharmacy Consult: Adjust Meds Renal Funct 12/24/16 14:03 Consult to Physician [CONS] Routine Comment: Consulting Provider: Josse Diaz When should Consulting Provider be notified: Now Consult to Specialist Group: Pulmonology When should Consulting Provider be notified: Now Person Notified: Left message with Shivani on recorder, Dr Diaz office nurse Date Notified: 12/24/16 Time Notified: 15:00 12/24/16 15:02 Consult to Pharmacy [CONS] Routine Reason for Pharmacy Consult: Dose/Manage Antibiotics Dose/Manage Vancomycin Comment: please adjust antibiotic doses for renal disease 12/24/16 16:57 Consult to Pharmacy [CONS] Routine Reason for Pharmacy Consult: Adjust Meds Renal Funct Dose/Manage Antibiotics Dose/Manage Vancomycin 12/26/16 06:47 Consult to Physician [CONS] Routine Comment: short of breath, pericardial effusion Consulting Provider: Cardiology - [facility] Consult to Specialist Group: Cardiology When should Consulting Provider be notified: Now Person Notified: PHOEBE Date Notified: 12/26/16 Time Notified: 08:25 12/28/16 08:33 Consult to Physician [CONS] Routine Comment: Consulting Provider: Zohaib Garza Consult to Specialist Group: Nephrology When should Consulting Provider be notified: Now Person Notified: GERARD Date Notified: 12/28/16 Time Notified: 08:50 Discharging clinician: Amna Mota MD
[2016-12-31] MEDS ORDERED: PNEUMOCOCCAL VACCINE (13 VALENT) 0.5 ML SYRINGE IM ONE ×3 (10:50→13:00)
--- NOTE | 2016-12-31 11:28 | Nephrology Progress Note ---
Nephrology - PN: Subj Interval history: She feels better overall today. No new complaints. No dysuria Exam (PN)-Nephrology - Vital Signs Vital signs: Period Temp Pulse Resp BP Sys/Hart Pulse Ox Last 24 Hr 96.7 F-98.4 F 72-93 16-20 116-133/62-71 90-100 Exam: ENT: Normal Cardiovascular: Regular rate and rhythm. No murmur rub or gallop Lungs: Clear Extremities: No edema - Lab 12/31/16 04:25 12/31/16 04:25 Most recent lab results ABG pH 7.507 (7.35-7.45) H 12/24/16 15:55 ABG pCO2 50.2 MM HG (35-48) H 12/24/16 15:55 ABG pO2 64.8 MM HG (80-95) L 12/24/16 15:55 ABG HCO3 38.9 MMOL/L (20-26) H 12/24/16 15:55 ABG O2 Saturation 92.9 % (95-100) L 12/24/16 15:55 Calcium 8.7 MG/DL (8.5-10.1) 12/31/16 04:25 Magnesium 2.8 MG/DL (1.8-2.4) H 12/27/16 04:36 Assessment and Plan (1) Acute pleuropericarditis Status: Acute Assessment and plan: 61-year-old woman admitted with: * Hematochezia. Resolved * Pleural effusions. Status post thoracentesis. This is thought to be due to pleuritis secondary to lupus. * Pericardial effusion * SLE. Vxta-bdxpvi-bwnekgrr DNA titer greater than 200. KEITH negative. SSA and SSB negative. P-ANCA negative c-ANCA negative. She does not appear to have any involvement of the kidneys from lupus. She will be followed by Dr. Freed. * Hematuria. Repeat urinalysis shows no hematuria. No proteinuria present. Current Visit: Yes (2) Bilateral pleural effusion Status: Acute Current Visit: Yes (3) Paroxysmal atrial fibrillation Status: Acute Current Visit: Yes (4) Positive double stranded DNA antibody test Status: Acute Current Visit: Yes (5) Congestive heart failure (CHF) Status: Chronic Current Visit: Yes (6) Hypertension Status: Chronic Current Visit: Yes (7) Hematochezia Status: Resolved Current Visit: Yes Specialty Discharge - Follow Up or Referrals Follow up with: Chauncey Carmen MD [Physician] - 01/30/17 1:50 pm Josse Diaz MD [Physician] - 01/23/17 12:30 pm Kris Freed MD [Physician] - 2 Weeks (DR. FREED'S OFFICE WILL CALL WITH APPT. new diagnosis of Lupus) Dominic Barr MD [Primary Care Provider] - 01/03/17 1:45 pm
--- NOTE | 2016-12-31 12:37 | Cardiology Progress Note ---
Cardiology - PN: Subj Interval history: Cardiology note No temperature Breathing better Telemetry shows steady sinus rhythm Blood pressure 132/80 Decreased breath sounds few crackles on the right side Regular rhythm no murmur or gallop Echo showed ejection fraction is 65% with a small effusion Sodium 143 potassium 3.6 chloride 107 CO2 28 BUN 33 creatinine 1.[address] Mota Follow-up as scheduled Exam (Progress Note) - Constitutional Vitals: Period Temp Pulse Resp BP Sys/Hart Pulse Ox Last 24 Hr 96.7 F-98 F 72-93 16-20 127-133/62-71 90-100 Result/EKG - Labs CBC & BMP: 12/31/16 04:25 12/31/16 04:25 Labs: Laboratory Results - last 24 hr 12/24/16 12/31/16 12/31/16 15:04 04:25 04:25 WBC 14.4 H RBC 4.24 Hgb 11.4 L Hct 36.5 MCV 86.1 L MCH 27 MCHC 31.2 L RDW 15.8 Plt Count 338 MPV 9.0 L Neut % (Auto) 74.6 H Lymph % (Auto) 14.6 L [place] % (Auto) 5.3 Eos % (Auto) 0.2 Baso % (Auto) 0.1 Neut # (Auto) 10.7 H Lymph # (Auto) 2.1 [place] # (Auto) 0.8 Eos # (Auto) 0.0 Baso # (Auto) 0.0 Total Counted 100 Immature Gran % 5.2 Nucleated RBC % 0.0 Immature Gran # 0.75 Segmented Neutrophils 83 Lymphocytes 14 L Monocytes 3 Nucleated RBCs # 0.00 Platelet Estimate Normal Hypochromasia 1+ Microcytosis 1+ Morphology Comment Sodium 143 Potassium 3.6 Chloride 107 Carbon Dioxide 28 Anion Gap 11.6 BUN 33 H Creatinine 1.20 H GFR Calculation 61 BUN/Creatinine Ratio 27.00 H Glucose 204 H Calculated Osmolality 297.0 Calcium 8.7 Cycl Citrul Peptide IgG < 15.6 c-ANCA Negative Anti-Proteinase 3 0.6 H p-ANCA Negative Myeloperoxidase Ab < 0.2 Quality Measures - VTE Deep Vein Thrombosis/Pulmonary Embolism Present on Admission: No Contraindication to Pharmacological VTE Prophylaxis: Active Bleeding - Stroke Symptom Onset Unknown: No Specialty Discharge - Follow Up or Referrals Follow up with: Chauncey Carmen MD [Physician] - 01/30/17 1:50 pm Josse Diaz MD [Physician] - 01/23/17 12:30 pm Kris Freed MD [Physician] - 2 Weeks (DR. FREED'S OFFICE WILL CALL WITH APPT. new diagnosis of Lupus) Dominic Barr MD [Primary Care Provider] - 01/03/17 1:45 pm
[2016-12-31] MEDS: LEVOFLOXACIN 750 MG TABLET PO SCH (13:07)
--- NOTE | 2017-01-08 09:22 | Physician Query Form ---
CLICK EDIT DOCUMENT TO SELECT QUERY ANSWER --> OK --> SIGN Shivani Mckeon RN, CCDS Certified Clinical Scraper Operator W) [phone] (f) [phone] [email or web address]: Make your selection(s) from the choices in EACH section by typing an "x" and enter comments in the comment section. Please use your independent medical judgment in providing your response. This request does not imply that any particular answer is desired or expected. CLINICAL INDICATORS: (Providers should not edit this section) The medical record indicates that the patient was admitted with pleural effusion , CHF, and Question of Lupus. In your clinical opinion can you please clarify if the pleural effusion is thought to be due to ? Based on the above, could you clarify the appropriate diagnosis, if significant , that supports the above abnormalities and additional evaluation, monitoring, and/or treatment rendered: ( ) Pleural effusion due to CHF ( ) Pleural effusion due to Lupus ( ) Pleural effusion due to ( ) Other, please specify: ( x) Clinically unable to determine COMMENTS: Use of terms such as suspected, likely, or probable (associated with a specific diagnosis that is being evaluated, monitored, or treated as if it exists) are acceptable and can be restated in the discharge summary if not ruled out. MTDD
== END 2016-12-31 14:34 | disposition home or self-care (01) | DRG 291 ==
LOC: N.TELEN 10:32 → SUATTDRO 10:32
PROVIDERS: ADMIT Internal Medicine; ATTEND Internal Medicine
PROC: IRTHORA (2016-12-25 09:40)

== ENCOUNTER 2017-02-14 07:49 | Inpatient (IN) ==
[2017-02-14 08:24] LABS: Basophils % 0.1 % (0.0-0.8); Eosinophils % 0.1 % (0.00-10.9); Hemoglobin 12.5 GM/DL (12.0-16.0); Immature Granulocytes % 0.6 %; Immature Granulocytes Absolute 0.09 #; Lymphocytes # 2.2 10*3/uL (1.4-4.0); Lymphocytes % 14.6 % (21.3-54.2); Mean Corpuscular HGB Conc 32.9 GM/DL (32-36); Mean Corpuscular Hemoglobin 29 PG (27-34); Monocytes # 0.9 10*3/uL (0.11-0.8); Neutrophils # 11.8 10*3/uL (1.4-7.4); Neutrophils % 78.6 % (38.7-73.9); Platelet Count 250 T/CUMM (130-400); Red Blood Count 4.37 MC/CUMM (3.8-5.5); Red Cell Distribution Width 16.3 % (9.3-17.3)
[2017-02-14 08:33] LABS: Apearance,Urine Slightly Hazy (Clear); Bacteria,Urine Occasional /HPF (Few); Bilirubin,Urine Negative (Negative); Blood, Urine Small mg/dL (Negative); Glucose,Urine (UA) Negative (Negative); Ketones,Urine 5 mg/dL (Negative); Mucus,Urine Many /LPF (Occasional); Nitrite,Urine Negative (Negative); Protein,Urine 100 MG/DL; RBC,Urine 3 /HPF (0-4); Squamous Epithelial Cell,Urine Occasional /HPF (0-10); Urine Color Yellow (Yellow); Urine Specific Gravity 1.021 (1.001-1.035); Urine Urobilinogen < 2.0 EU/DL (0.2-1.0); WBC,Urine 14 /HPF (0-6)
[2017-02-14] MEDS ORDERED: ACETAMINOPHEN 500 MG TABLET PO STA (08:39)
[2017-02-14] MEDS ORDERED: ACETAMINOPHEN 500 MG TABLET ONE (08:40)
[2017-02-14 08:54] LABS: Bilirubin,Total 0.6 MG/DL (0.2-1.0); Calcium 9.2 MG/DL (8.5-10.1); Osmolality,Calculated 277.7 MOS/KG (273-304); Potassium 3.7 MMOL/L (3.5-5.1); Total Protein 7.3 G/DL (6.4-8.3)
[2017-02-14] MEDS ORDERED: LEVOFLOXACIN INJ 500 MG in PREMIX 1 EACH IV STA (10:24)
[2017-02-14] MEDS ORDERED: LEVOFLOXACIN INJ 100 ML IV ONE (10:25)
[2017-02-14] MEDS ORDERED: ZALEPLON 5 MG CAPSULE PO PRN (11:26)
[2017-02-14] MEDS ORDERED: ACETAMINOPHEN 325 MG TABLET PO PRN (11:26)
[2017-02-14] MEDS ORDERED: LACTULOSE 20 GM/30 ML UDCUP PO PRN (11:26)
[2017-02-14] MEDS ORDERED: ONDANSETRON 4 MG/2 ML VIAL IV PRN (11:26)
--- NOTE | 2017-02-14 12:22 | Emergency Department Note ---
Lev Hernandez Hilary, am scribing for, and in the presence of, Joss Khan MD 08:04. Erin Hernandez Phillip K, MD, personally performed the services described in this documentation, ascribed by aDwn Ohara in my presence, and it is both accurate and complete . Arrival - Arrival Chief Complaint: Fever Stated Complaint: running temp,neck pain ED Nursing Triage Note: Pt c/o Posterior neck pain, left sided rib pain, fever, chills, cough, and SOB since . Mode of Arrival: Ambulatory Limitations: No Limitations Source: Patient, RN Notes Reviewed - History of Present Illness HPI Narrative: Pt is a 61 y/o black female presenting to the ED with c/o cough and neck pain which onset 2 days ago. Pt confirms back pain, neck pain, chills, SOB, fever, cough, left sided rib pain but denies calf tenderness, abdominal pain or nausea. She reports that she had Pneumonia in October and takes Prednisone [address] Lam. Pt has a PMHx of CHF, HTN, systemic lupus Erythematosus, Pneumonia, Hemorrhoids and GERD. No other complaints or problems stated in the ED. Onset (ago): day(s) Allergies/Adverse Reactions: Allergies Allergy/AdvReac Type Severity Reaction Status Date / Time morphine AdvReac Mild Nausea Verified 12/24/16 11:27 Home Medications: Home Medications Medication Instructions Recorded Confirmed Type Albuterol Inhaler [Proventil 2 puffs INH Q6HR PRN 12/24/16 12/24/16 History Inhaler] Aspirin [Ecotrin] 81 mg PO DAILY 12/24/16 12/24/16 History Benzonatate 200 mg PO TID 12/24/16 12/24/16 History Cetirizine HCl [Cetirizine Tab] 10 mg PO DAILY 12/24/16 12/24/16 History Fluticasone 50 Mcg Nasal [place] 1 spray BOTH NARES DAILY 12/24/16 12/24/16 History [Flonase Nasal [place]] Montelukast Tab [Singulair Tab] 10 mg PO BEDTIME 12/24/16 12/24/16 History Omeprazole 40 mg PO DAILY 12/24/16 12/24/16 History amLODIPine [Norvasc] 10 mg PO DAILY 12/24/16 12/24/16 History hydroCHLOROthiazide 25 mg PO DAILY 12/24/16 12/24/16 History [Hydrochlorothiazide] Budesonide/Formoterol 160-4.5 2 puffs INH DAILY #1 puffs 12/31/16 Rx [Symbicort 160-4.5] HYDROcodone/ACETAMIN 5-325 [[place] 1 tablet PO Q4H PRN #30 tablet 12/31/16 Rx 5-325] Levofloxacin Tab [Levaquin Tab] 750 mg PO Q24H #7 tablet 12/31/16 Rx Metoprolol Tartrate Tab [Lopressor 50 mg PO BID #60 tablet 12/31/16 Rx Tab] Potassium Chloride Cap/Tab [K Dur] 20 meq PO DAILY #30 tablet 12/31/16 Rx predniSONE TAB [PredniSONE] 20 mg PO DAILY #60 tablespoon 12/31/16 Rx Review of System - Review of System 12 point system: reviewed and no additional remarkable complaints except as stated - Review of System Constitutional: Present: chills, fever Respiratory: Present: cough, respiratory distress (SOB) Cardiovascular: Absent: chest pain Gastrointestinal: Absent: abdominal pain, nausea Musculoskeletal: Present: back pain, neck pain, other (left rib pain) Medical,Surgical,& Family Hx - Medical History Cardio: History of: CHF, Hypertension No history of: Cardiac Dysrhythmia, CAD, [place], Pacemaker, Valvular Heart Disease Psychological: No history of: Anxiety Disorders, Depression Neurology: No history of: Dementia, Seizures, TIA HEENT: History of: Dental Problems (poor dentition) No history of: Ear Problem Endocrine: No history of: Diabetes Mellitus (IDDM), Diabetes Mellitus (NIDDM), Dyslipidemia, Thyroid Disorder Rheumatology: History of;: Systemic Lupus Erythematosus No history of;: Gout, Rheumatoid Arthritis Respiratory: History of: Pneumonia No history of: Asthma, Bronchitis, COPD, Intubation, Obstructive Sleep Apnea , Pulmonary Embolism Renal: No history of: Renal Problems Genitourinary: History of: Recurring Urinary Tract Infections Gastrointestinal: History of: GERD, Hemorrhoids, Hematochezia No history of: Esophageal Varices, Hepatitis, Ulcerative Colitis Musculoskeletal: History of: Osteoporosis No history of: Amputation, Degenerative Disk Disease Hematology: No history of: Anemia, Blood Transfusion Reaction Reproductive: History of: Reproductive Problems Other: No history of: Cancer, HIV - Surgical History Cardiac Surgeries: Patient Denies: Cardiac Catheterization Thoracic Surgeries: Patient denies;: Organ Transplant, Lobectomy Neurologic Surgeries: Patient denies: Neurologic Surgery HEENT Surgeries: Patient denies: Tonsilectomy & Adenoidectomy Abdominal Surgeries: Patient denies: Abdominal Surgery, Colonoscopy, EGD Reproductive Surgeries: Surgical HX of;: Gynecologic Surgery, Hysterectomy Patient denies;: Genitourinary Surgery - Family History Family History: Reports;: Family Diabetes (neice), Family Heart Disease, Family Hypertension (mom), Family Stroke (sister) - Social History Smoking Status: Never smoker Exam Vital Signs: Vital Signs Temperature 98.5 F 02/14/17 10:00 Pulse Rate 109 H 02/14/17 10:00 Respiratory Rate 20 02/14/17 10:00 Blood Pressure 137/82 02/14/17 10:00 O2 Sat by Pulse Oximetry 98 02/14/17 10:00 - General General appearance: alert, in no apparent distress - Head Head exam: Present: atraumatic, normocephalic - Eye Eye exam: Present: normal appearance, PERRL, EOMI - ENT ENT exam: Present: mucous membranes moist, TM's normal bilaterally. Absent: mucous membranes dry - Neck Neck exam: Present: full ROM, trachea midline. Absent: tenderness - Chest Chest inspection: Present: symmetric chest wall rise. Absent: tenderness - Respiratory Respiratory exam: Present: normal lung sounds bilaterally. Absent: respiratory distress - Cardiovascular Cardiovascular exam: Present: regular rate, normal rhythm, normal heart sounds. Absent: murmur, rubs, gallop - Abdominal Exam Abdominal exam: Present: soft, normal bowel sounds. Absent: distention, tenderness - Extremities Exam Extremities exam: Present: full ROM. Absent: tenderness, calf tenderness - Back Exam Back exam: Present: full ROM, CVA tenderness (L) - Neurological Exam Neurological exam: Present: alert, oriented X3, CN II-XII intact. Absent: motor sensory deficit - Psychiatric Psychiatric exam: Present: normal affect, normal mood - Skin Skin exam: Present: warm, dry, intact, normal color. Absent: rash Results - Labs CBC & BMP: 02/14/17 08:00 02/14/17 08:00 Lab Results: I have reviewed the patients labs Labs: Laboratory Tests 02/14/17 02/14/17 08:00 08:08 WBC 15.0 H RBC 4.37 Hgb 12.5 Hct 38.0 Neut % (Auto) 78.6 H Lymph % (Auto) 14.6 L Neut # (Auto) 11.8 H [place] # (Auto) 0.9 H Urine Color Yellow Urine Appearance Slightly hazy Urine Urobilinogen < 2.0 H Laboratory Tests 02/14/17 08:00 Sodium 138 Potassium 3.7 Creatinine 1.10 H Glucose 151 H Albumin 3.0 L Globulin 4.3 H Albumin/Globulin Ratio 0.6 L - EKG EKG results: interpreted by RON (Sinus tachycardia with lateral inferior ischemia) - Diagnostic Findings Procedure: Chest x-ray: report reviewed by me (Stable cardiomegaly with chronic scarring. Persistent relative elevation of the right hemidiaphragm with residual atelectasis at the lung bases. Smaller pleural effusions. ), CT - chest : report reviewed by me (No pulmonary emboli are identifed.Persistent cardiomegaly wiht smaller pericardial and pleural effusions. Decreased parenchymal findings in the lungs with residual atelectasis/infiltration especially in the right lower lobe. Residual elevation of the right hemidiaphragm. Small hiatal hernia with fatty infiltration of the liver. ) Disposition Clinical Impression: Fever, Pneumonia, Lupus (systemic lupus erythematosus) Case discussed with: patient Disposition: Still a Patient Condition: Guarded Additional Instructions: Admit to the hospitalist.
--- NOTE | 2017-02-14 12:23 | Hospitalist History & Physical ---
Assessment and Plan (1) Pneumonia Status: Acute Assessment and plan: Chest x-ray shows patchy infiltrate in the left lower lobe. D-dimer is elevated however there is no evidence of PE on chest x-ray. Patient does not complain of any lower extremity pain, claudication, warmth or tenderness to her legs. Patient was started on IV Levaquin in the ED. We will continue Levaquin upon transfer to the floor. Repeat chest x-ray 48 hours. Current Visit: Yes (2) Congestive heart failure (CHF) Status: Chronic Assessment and plan: Patient has history of congestive heart failure. She is followed by Dr. Carmen. Chest x-ray is not suggestive of any cardiac decompensation. Will order BNP Current Visit: No (3) Hypertension Status: Chronic Assessment and plan: Appears to be well controlled on current medication plan. Continue home meds. Current Visit: No (4) Fever Status: Acute Assessment and plan: Likely associated with pulmonary infection. Give Tylenol as needed every 4. Current Visit: Yes (5) Lupus (systemic lupus erythematosus) Status: Acute Assessment and plan: Patient was diagnosed with systemic lupus erythematous in December 2016. She is scheduled to see Dr. Kris Lam, it application development manager, on March 27, 2017. Patient currently takes prednisone 10 mg daily. Current Visit: Yes History of Present Illness Chief complaint: Shortness of breath, fever History of present illness: Ms. Hammond is a 61 year old female with a past medical history of congestive heart failure, hypertension, systemic lupus erythematous, pneumonia who presents to the ED today with complaints of shortness of breath, pain on inspiration and fever 3 days. She reports that she was last hospitalized in December for chronic cough and was found to have systemic lupus erythematous. She reports she was then given pneumonia vaccination and sent home on oral prednisone. She is scheduled to see Dr. Kris Lam, it application development manager, in March for the lupus. Patient says that she has been hurting in her left chest wall, coughing, having pain on inspiration, and headache since Saturday. She reports that she has been producing sputum, however, it has been clear in color. She states that she is taking only Tylenol and Motrin with little relief. She denies blurry vision, chest pain that radiates, abdominal pain, nausea vomiting diarrhea. On admission, the patient was found to be tachycardic. Pulmonary labs also reveal a white count of 15, d-dimer 2.5, creatinine 1.10, glucose 151 , albumin 3.0. Urinalysis does show 100 mg/dL protein and trace leukocytes. UC to follow. After discussion with Dr. Khan, ER physician, and Dr. Cabral, admitting physician, it has been agreed that the patient will be admitted for further evaluation and treatment through the hospital medicine service. The patient is a full code. Home Medications Medication Instructions Recorded Confirmed Type Albuterol Inhaler [Proventil 2 puffs INH Q6HR PRN 12/24/16 12/24/16 History Inhaler] Aspirin [Ecotrin] 81 mg PO DAILY 12/24/16 12/24/16 History Benzonatate 200 mg PO TID 12/24/16 12/24/16 History Cetirizine HCl [Cetirizine Tab] 10 mg PO DAILY 12/24/16 12/24/16 History Fluticasone 50 Mcg Nasal [place] 1 spray BOTH NARES DAILY 12/24/16 12/24/16 History [Flonase Nasal [place]] Montelukast Tab [Singulair Tab] 10 mg PO BEDTIME 12/24/16 12/24/16 History Omeprazole 40 mg PO DAILY 12/24/16 12/24/16 History amLODIPine [Norvasc] 10 mg PO DAILY 12/24/16 12/24/16 History hydroCHLOROthiazide 25 mg PO DAILY 12/24/16 12/24/16 History [Hydrochlorothiazide] Metoprolol Tartrate Tab [Lopressor 50 mg PO BID #60 tablet 12/31/16 Rx Tab] Budesonide/Formoterol 160-4.5 2 puffs INH QAM 02/14/17 02/14/17 History [Symbicort 160-4.5] Potassium Chloride Cap/Tab [K Dur] 20 meq PO QAM 02/14/17 02/14/17 History predniSONE TAB [PredniSONE] 10 mg PO QAM 02/14/17 02/14/17 History Allergies Allergy/AdvReac Type Severity Reaction Status Date / Time morphine AdvReac Mild Nausea Verified 12/24/16 11:27 Medical,Surgical,& Family Hx - Medical History Cardio: History of: CHF, Hypertension No history of: Cardiac Dysrhythmia, CAD, SD, Pacemaker, Valvular Heart Disease Psychological: No history of: Anxiety Disorders, Depression Neurology: No history of: Dementia, Seizures, TIA HEENT: History of: Dental Problems (poor dentition) No history of: Ear Problem Endocrine: No history of: Diabetes Mellitus (IDDM), Diabetes Mellitus (NIDDM), Dyslipidemia, Thyroid Disorder Rheumatology: History of;: Systemic Lupus Erythematosus No history of;: Gout, Rheumatoid Arthritis Respiratory: History of: Pneumonia No history of: Asthma, Bronchitis, COPD, Intubation, Obstructive Sleep Apnea , Pulmonary Embolism Renal: No history of: Renal Problems Genitourinary: History of: Recurring Urinary Tract Infections Gastrointestinal: History of: GERD, Hemorrhoids, Hematochezia No history of: Esophageal Varices, Hepatitis, Ulcerative Colitis Musculoskeletal: History of: Osteoporosis No history of: Amputation, Degenerative Disk Disease Hematology: No history of: Anemia, Blood Transfusion Reaction Reproductive: History of: Reproductive Problems Other: No history of: Cancer, HIV - Surgical History Cardiac Surgeries: Patient Denies: Cardiac Catheterization Thoracic Surgeries: Patient denies;: Organ Transplant, Lobectomy Neurologic Surgeries: Patient denies: Neurologic Surgery HEENT Surgeries: Patient denies: Tonsilectomy & Adenoidectomy Abdominal Surgeries: Patient denies: Abdominal Surgery, Colonoscopy, EGD Reproductive Surgeries: Surgical HX of;: Gynecologic Surgery, Hysterectomy Patient denies;: Genitourinary Surgery - Family History Family History: Reports;: Family Diabetes (neice), Family Heart Disease, Family Hypertension (mom), Family Stroke (sister) - Social History Smoking Status: Never smoker Frequency of Alcohol Use: None Marital Status: Lives With:: Alone Functional capacity: independent ambulation - Constitutional Constitutional: Present: fatigue, fever(s), headache(s), weakness - EENT Eyes: Absent: blurry vision, loss of vision Ears: Absent: decreased hearing, ear pain Nose, mouth and throat: Present: headache(s). Absent: neck mass, sinus pressure , sore throat, throat swelling, vertigo - Cardiovascular Cardiovascular: Present: dyspnea, dyspnea on exertion, palpitations. Absent: chest pain at rest, chest pain with activity, edema, radiating jaw, neck or arm pain - Respiratory Respiratory: Present: cough, dyspnea on exertion, pain on inspiration. Absent: dyspnea, wheezing, snoring - Gastrointestinal Gastrointestinal: Absent: abdominal pain, constipation, nausea, vomiting - Genitourinary Genitourinary: Absent: difficulty urinating, dysuria, flank pain - Musculoskeletal Musculoskeletal: Present: arthralgias. Absent: back pain - Neurological Neurological: Absent: abnormal gait, abnormal speech, confusion, dizziness, headache(s), numbness, syncope - Psychiatric Psychiatric: Absent: anxiety, depression - Endocrine Endocrine: Present: fatigue. Absent: cold intolerance, heat intolerance - Hematologic/Lymphatic Hematologic/Lymphatic: Absent: easy bleeding, easy bruising Exam - Constitutional Vitals: Period Temp Pulse Resp BP Sys/Hart Pulse Ox Last 24 Hr 98.5 F-101.1 F 107-135 18-22 120-146/76-92 97-99 Exam: General appearance: Over weight, no acute distress - Head Head exam: Present: normocephalic, atraumatic - Eye Eye exam: Present: EOMI. Absent: conjunctival injection, nystagmus Pupils: Present: MORGAN, normal accommodation - ENT ENT exam: Present: normal exam, normal external ear exam - Neck Neck exam: Present: normal inspection. Absent: lymphadenopathy, tenderness, thyromegaly - Respiratory Respiratory exam: Present: Decreased breath sounds bilaterally, pain on inspiration concentrated in the left lower chest area. Absent: rales, rhonchi, wheezes - Cardiovascular Cardiovascular exam: Present: Tachycardia. Absent: carotid bruit, gallop, rubs - GI/Abdominal GI/Abdominal exam: Present: normal bowel sounds. Absent: ascites, distended, mass - Extremities Exam Extremities exam: Present: normal inspection, normal capillary refill. Absent: edema - Back Exam Back exam: Absent: CVA tenderness (L), CVA tenderness (R) - Neurological Exam Neurological exam: Present: alert, oriented X3 - Psychiatric Psychiatric exam: Present: normal affect, normal mood - Skin Skin exam: Present: normal color, warm, dry Results - Labs CBC & BMP: 02/14/17 08:00 02/14/17 08:00 Lab Results: I have reviewed the past 24 hour labs - EKG EKG results: interpreted by RON EKG shows: tachycardia, sinus rhythm - Diagnostic Findings Procedure: Chest x-ray: image reviewed by me
--- NOTE | 2017-02-14 14:04 | XRay Report ---
XR chest 2V Date: 02/14/2017 8:01 AM History: Shortness of breath, fever Comparison: 12/30/2016 Technique: PA and lateral chest Findings: Stable cardiomegaly with uncoiling of the aorta. Persistent relative elevation of the right hemidiaphragm. Chronic scarring in the lungs with persistent atelectasis at the lung bases. Smaller pleural effusions. Stable mediastinum and osseous structures. Impression: Stable cardiomegaly with chronic scarring. Persistent relative elevation of the right hemidiaphragm with residual atelectasis at the lung bases. Smaller pleural effusions. PROCEDURE INTERPRETED AT [facility] DEPARTMENT OF RADIOLOGY Final Report Signed by: Dr. Yue Omalley
--- NOTE | 2017-02-14 14:05 | CT Report ---
Exam: CT chest with contrast, PE study Date: 02/14/2017 Comparison: 12/23/2016 Reason: Left pleuritic chest pain, shortness of breath Technique: Axial images of the chest were obtained after administration of 80 cc of IV Omnipaque 350 intravenous contrast. Coronal reformatted images were also acquired. The study was performed per pulmonary embolism protocol. Total DLP: 227.10 Findings: The heart remains enlarged with smaller pericardial effusion. No evidence of aortic dissection or pulmonary emboli. Calcified nodes/granulomata with no significant change in the size of the nodes in the chest. Fatty infiltration of visualized liver with small hiatal hernia and degenerative changes. Decreased but persistent small pleural effusions. Decreased parenchymal findings in the lungs with residual atelectasis/infiltration especially in the right lower lobe. Chronic elevation of the right hemidiaphragm. Impression: No pulmonary emboli are identified. Persistent cardiomegaly with smaller pericardial and pleural effusions. Decreased parenchymal findings in the lungs with residual atelectasis/infiltration especially in the right lower lobe. Residual elevation of the right hemidiaphragm. Small hiatal hernia with fatty infiltration of the liver. This CT exam was performed using one or more the following dose reduction techniques: Automated exposure control, adjustment of the MA and/or KV according to patient size, or use of iterative reconstruction technique. PROCEDURE INTERPRETED AT [facility] DEPARTMENT OF RADIOLOGY Final Report Signed by: Dr. Yue Omalley
[2017-02-14] MEDS: METOPROLOL TARTRATE 50 MG TABLET PO SCH ×2 (17:54→21:19)
[2017-02-14] MEDS: ACETAMINOPHEN 325 MG TABLET PO PRN (17:54)
--- NOTE | 2017-02-14 22:50 | EKG Report ---
Stationary ECG Study [facility] ER Test Date: 02/14/2017 8:03:24 AM Pat Name: HORTENCIA ARCHIBALD Department: Room: 245 Gender: F Tissue Packer: : [id number] Requested by: Joss Wilhelm Order Number: [id number] Reading MD: CAROL HOLDER Intervals [place] Rate: 131 P: 55 PA: 136 QRS: 70 QRSD: 71 T: -65 QT: 333 QTc: 410 Interpretive Statements SINUS TACHYCARDIA MODERATE T-WAVE ABNORMALITY, CONSIDER ANTEROLATERAL ISCHEMIA MODERATE T-WAVE ABNORMALITY, CONSIDER INFERIOR ISCHEMIA Electronically Signed On 02-17-17 15:20:40 CDT by CAROL HOLDER [email or web address]
[2017-02-15] MEDS: ACETAMINOPHEN 325 MG TABLET PO PRN (05:10)
[2017-02-15 06:58] LABS: Basophils % 0.3 % (0.0-0.8); Eosinophils % 0.2 % (0.00-10.9); Hematocrit 32.9 VOL% (35.7-47.0); Hemoglobin 10.6 GM/DL (12.0-16.0); Immature Granulocytes % 0.7 %; Immature Granulocytes Absolute 0.08 #; Lymphocytes % 16.8 % (21.3-54.2); Mean Corpuscular HGB Conc 32.2 GM/DL (32-36); Mean Corpuscular Hemoglobin 28 PG (27-34); Mean Corpuscular Volume 87.3 FL (87-102); Monocytes % 8.3 % (1.7-12.7); Neutrophils # 8.8 10*3/uL (1.4-7.4); Neutrophils % 73.7 % (38.7-73.9); Platelet Count 224 T/CUMM (130-400); Red Blood Count 3.77 MC/CUMM (3.8-5.5); Red Cell Distribution Width 16.4 % (9.3-17.3); White Blood Count 11.9 T/CUMM (4-12)
[2017-02-15 07:37] LABS: Calcium 8.4 MG/DL (8.5-10.1); Magnesium 2.2 MG/DL (1.8-2.4); Osmolality,Calculated 281.3 MOS/KG (273-304); Potassium 3.3 MMOL/L (3.5-5.1)
[2017-02-15] MEDS: ENOXAPARIN 40 MG/0.4 ML SYRINGE SUBCUT SCH ×2 (10:38→14:06)
[2017-02-15] MEDS: AZITHROMYCIN INJ 500 MG in SODIUM CHLORIDE 0.9% 250 ML IV SCH ×2 (10:38→11:55)
[2017-02-15] MEDS: cefTRIAXone 1,000 MG in SODIUM CHLORIDE 0.9% 100 ML IV SCH ×2 (10:39→10:41)
[2017-02-15] MEDS: PANTOPRAZOLE 40 MG TABLET PO SCH (10:42)
[2017-02-15] MEDS: METOPROLOL TARTRATE 50 MG TABLET PO SCH ×2 (10:42→20:53)
[2017-02-15] MEDS: DOCUSATE SODIUM 100 MG CAPSULE PO PRN (10:42)
[2017-02-15] MEDS: predniSONE 10 MG TABLET PO SCH (11:14)
[2017-02-15] MEDS: ALBUTEROL/IPRATROPIUM 3 ML NEB RESP TX PRN (13:46)
--- NOTE | 2017-02-15 14:43 | Hospitalist Progress Note ---
Assessment and Plan - Time spent with patient Time spent with patient: Greater than 30 minutes (1) Pneumonia Status: Acute Assessment and plan: Continue antibiotics. BrTx. Current Visit: Yes (2) UTI (urinary tract infection) Status: Acute Assessment and plan: Continue antibiotics. Current Visit: Yes (3) Abdominal pain Status: Acute Assessment and plan: Obtain CT of the abdomen and pelvis. Current Visit: Yes (4) Lupus (systemic lupus erythematosus) Status: Acute Assessment and plan: Continue prednisone. Current Visit: Yes Hospitalist: Subjective Interval history: Complains of a cough, and abdominal pain. Exam - Constitutional Vitals: Period Temp Pulse Resp BP Sys/Hart Pulse Ox Last 24 Hr 96.1 F-102.2 F 99-120 18-24 101-127/56-73 95-100 General appearance: no acute distress - Head Head exam: Present: normocephalic, atraumatic - Eye Eye exam: Present: EOMI Pupils: Present: MORGAN - ENT ENT exam: Present: normal exam - Neck Neck exam: Present: normal inspection - Respiratory Respiratory exam: Present: clear to auscultation bilaterally. Absent: rhonchi, wheezes - Cardiovascular Cardiovascular exam: Present: regular rate and rhythm. Absent: gallop, rubs, systolic murmur - GI/Abdominal GI/Abdominal exam: Present: normal bowel sounds, soft, other (mass in the midline, tender to palpation). Absent: distended, firm, guarding, rebound - Extremities Exam Extremities exam: Present: normal inspection. Absent: calf tenderness, edema Results - Labs CBC & BMP: 02/15/17 06:38 02/15/17 06:38 Lab Results: I have reviewed the past 24 hour labs
--- NOTE | 2017-02-15 15:48 | CT Report ---
History: Midline abdominal tenderness. Abdominal mass Date: 02/15/2017 Study: CT abdomen and pelvis with and without IV contrast Comparison exam: No previous abdominal CT Technique: Spiral CT sections were obtained from the lung bases to the pubic symphysis before and after oral contrast and after 100 mL Omnipaque [address] exam was performed using one or more of the following dose reduction techniques: Automated exposure control, adjustment of the mA and/or kV according to patient size, or use of iterative reconstruction technique. CT abdomen: Please refer to the CT chest from 02/14/2017. Mild right pleural effusion and mild pericardial effusion are noted. The liver, spleen, pancreas, bile ducts, and adrenal glands are normal in appearance aside from a tiny rounded 3 to 4 mm low-density posteriorly in the right lobe of the liver which may represent a hepatic cyst. There is vascular calcification in the left renal sinus. There is no radiopaque renal or ureteral stone. There is a 4.5 cm class II Bosniak cyst in the mid to lower left kidney with thin internal septation. There is no enhancing renal mass. There are small rounded low-density renal lesions measuring less than a centimeter bilaterally which are likely simple cysts, though some of these are too small to completely characterize. There is no aortic aneurysm. There is a fat-containing ventral wall hernia superior to the umbilicus, measuring at least 3.7 cm transverse diameter. There is also a tiny periumbilical hernia containing fat. The appendix is visualized and is normal. There is no lymphadenopathy by short axis diameter criteria. There is no bowel obstruction or pneumoperitoneum. There is diverticulosis without harshal diverticulitis. CT pelvis: There is no pelvic mass. There is a tiny amount of nonspecific free fluid in the pelvis. There is mild scattered lumbar spondylosis. Impression: Fat-containing midline ventral wall hernia Diverticulosis without harshal diverticulitis Mild right pleural effusion Mild pericardial effusion Generally benign appearing renal cysts bilaterally PROCEDURE INTERPRETED AT [facility] DEPARTMENT OF RADIOLOGY Final Report Signed by: Dr. Sandra Meyer
[2017-02-15] MEDS: amLODIPine 10 MG TABLET PO SCH (17:06)
[2017-02-16] MEDS ORDERED: AZITHROMYCIN 250 MG TABLET PO SCH (09:00)
[2017-02-16] MEDS: cefTRIAXone 1,000 MG in SODIUM CHLORIDE 0.9% 100 ML IV SCH (11:04)
[2017-02-16] MEDS: METOPROLOL TARTRATE 50 MG TABLET PO SCH ×2 (11:06→20:09)
[2017-02-16] MEDS: PANTOPRAZOLE 40 MG TABLET PO SCH (11:06)
[2017-02-16] MEDS: DOCUSATE SODIUM 100 MG CAPSULE PO PRN (11:06)
[2017-02-16] MEDS: amLODIPine 10 MG TABLET PO SCH (11:06)
[2017-02-16] MEDS: predniSONE 10 MG TABLET PO SCH (11:07)
[2017-02-16] MEDS: ALBUTEROL/IPRATROPIUM 3 ML NEB RESP TX PRN (11:10)
--- NOTE | 2017-02-16 14:14 | XRay Report ---
History: Shortness of breath Date: 02/16/2017 Study: Chest x-ray AP portable Comparison exam: February 14, 2017 chest x-ray There is continued cardiomegaly. The mediastinal contours are unchanged. The pulmonary vasculature is not engorged. There is some increased mild atelectasis and mild pleural effusion in the right lung base. There is some minimal platelike scar in the left lower lobe. The osseous structures are unchanged. Impression: Increased mild right basilar atelectasis and pleural effusion compared to the previous study. Continued cardiomegaly PROCEDURE INTERPRETED AT [facility] DEPARTMENT OF RADIOLOGY Final Report Signed by: Dr. Sandra Meyer
[2017-02-16] MEDS: ENOXAPARIN 40 MG/0.4 ML SYRINGE SUBCUT SCH (14:27)
--- NOTE | 2017-02-16 16:50 | Hospitalist Progress Note ---
Assessment and Plan - Time spent with patient Time spent with patient: Greater than 30 minutes (1) Pneumonia Status: Acute Assessment and plan: Continue antibiotics. BrTx. Current Visit: Yes (2) UTI (urinary tract infection) Status: Acute Assessment and plan: Continue antibiotics. Current Visit: Yes (3) Lupus (systemic lupus erythematosus) Status: Acute Assessment and plan: Continue prednisone. Current Visit: Yes Hospitalist: Subjective Interval history: Patient states her coughing is worse and she feels overall worse. No overnight events. Exam - Constitutional Vitals: Period Temp Pulse Resp BP Sys/Hart Pulse Ox Last 24 Hr 98.4 F-98.9 F 77-103 18-20 108-115/56-69 98-99 General appearance: no acute distress - Head Head exam: Present: normocephalic, atraumatic - Eye Eye exam: Present: EOMI Pupils: Present: MORGAN - ENT ENT exam: Present: normal exam - Neck Neck exam: Present: normal inspection - Respiratory Respiratory exam: Present: other (Coarse crackles at the bases). Absent: rhonchi, wheezes - Cardiovascular Cardiovascular exam: Present: regular rate and rhythm. Absent: gallop, rubs, systolic murmur - GI/Abdominal GI/Abdominal exam: Present: normal bowel sounds, soft. Absent: distended, firm , guarding, tenderness, rebound - Extremities Exam Extremities exam: Present: normal inspection. Absent: calf tenderness, edema Results - Labs CBC & BMP: 02/15/17 06:38 02/15/17 06:38 Lab Results: I have reviewed the past 24 hour labs
[2017-02-16] MEDS: AZITHROMYCIN INJ 500 MG in SODIUM CHLORIDE 0.9% 250 ML IV SCH (20:24)
[2017-02-17] MEDS ORDERED: FUROSEMIDE 20 MG/2 ML VIAL IV ONE (08:11)
[2017-02-17] MEDS: cefTRIAXone 1,000 MG in SODIUM CHLORIDE 0.9% 100 ML IV SCH (08:16)
[2017-02-17] MEDS: PANTOPRAZOLE 40 MG TABLET PO SCH (08:24)
[2017-02-17] MEDS: DOCUSATE SODIUM 100 MG CAPSULE PO PRN (08:24)
[2017-02-17] MEDS: predniSONE 10 MG TABLET PO SCH (08:24)
[2017-02-17] MEDS: amLODIPine 10 MG TABLET PO SCH (08:24)
[2017-02-17] MEDS: METOPROLOL TARTRATE 50 MG TABLET PO SCH (08:25)
[2017-02-17] MEDS: AZITHROMYCIN INJ 500 MG in SODIUM CHLORIDE 0.9% 250 ML IV SCH (11:05)
[2017-02-17] MEDS: ALBUTEROL/IPRATROPIUM 3 ML NEB RESP TX PRN (11:47)
[2017-02-17 14:06] VITALS: BP 123/69
[2017-02-17] MEDS ORDERED: POTASSIUM CHLORIDE 20 MEQ PACK PO ONE (15:19)
--- NOTE | 2017-02-17 15:20 | Discharge Summary ---
Hospital Course - Hospital Course Hospital Course: Ms. Hammond was admitted for evaluation of cough and fever. While in the emergency department she had a CT of the chest to look for pulmonary emboli which was negative. She had potential infiltration on the right side. She was suspected of having pneumonia was initiated and antibiotics for this. While hospitalized she had a CT of her abdomen to evaluate for what was suspected to be a midline hernia and was confirmed to be this. There was no complication from this. Her cough and fever improved during her hospital stay. By discharge she had met maximum benefit of hospitalization. I spent 32 minutes coordinating this discharge. - Time spent with patient Time with patient DS: Greater than 30 minutes Diagnosis - Discharge Diagnosis (1) Pneumonia Status: Acute (2) UTI (urinary tract infection) Status: Acute (3) Lupus (systemic lupus erythematosus) Status: Acute Discharge Plan - Discharge Data Disposition: Disch To Home/Self Care Condition at Discharge: Stable Discharge Diet: advance to your usual diet Activity: resume usual activities as tolerated - Discharge Medications New Levofloxacin Tab [Levaquin Tab] 500 mg PO DAILY #4 tablet Continue Albuterol Inhaler [Proventil Inhaler] 2 puffs INH Q6HR PRN PRN Reason: Wheezing amLODIPine [Norvasc] 10 mg PO QAM Benzonatate 200 mg PO TID Omeprazole 40 mg PO QAM Fluticasone 50 Mcg Nasal [place] [Flonase Nasal [place]] 1 spray BOTH NARES QAM Cetirizine HCl [Cetirizine Tab] 10 mg PO QAM Aspirin [Ecotrin] 81 mg PO QAM Montelukast Tab [Singulair Tab] 10 mg PO BEDTIME Metoprolol Tartrate Tab [Lopressor Tab] 50 mg PO BID #60 tablet Potassium Chloride Cap/Tab [K Dur] 20 meq PO QAM Budesonide/Formoterol 160-4.5 [Symbicort 160-4.5] 2 puffs INH QAM hydroCHLOROthiazide [Hydrochlorothiazide] 25 mg PO QAM predniSONE TAB [PredniSONE] 10 mg PO QAM - Follow Up or Referral - Forms/Instructions Exam - Constitutional Vitals: Period Temp Pulse Resp BP Sys/Hart Pulse Ox Last 24 Hr 97.6 F-99.7 F 92-106 14-20 114-140/59-80 94-100 General appearance: normal weight, no acute distress - Head Head exam: Present: normal inspection, normocephalic, atraumatic - Eye Eye exam: Present: EOMI Pupils: Present: MORGAN - ENT ENT exam: Present: normal exam - Neck Neck exam: Present: normal inspection - Respiratory Respiratory exam: Present: rales (bases R>L). Absent: accessory muscle use, prolonged expiratory phase, wheezes - Cardiovascular Cardiovascular exam: Present: regular rate and rhythm. Absent: bradycardia, irregular rhythm, systolic murmur - GI/Abdominal GI/Abdominal exam: Present: normal bowel sounds. Absent: ascites, distended, hypoactive bowel sounds, tenderness - Extremities Exam Extremities exam: Present: normal inspection Discharge Results Procedures and tests throughout hospitalization: Pending Orders 02/14/17 Blood Culture Stat Labs on day of discharge: Preliminary micro results at discharge 02/14/17 08:00 Blood Culture - Preliminary Blood No growth at 3 days 02/14/17 Unknown Blood Culture - Preliminary Blood No growth at 1 day DS: Provider Date of admission: 02/14/17 10:43 Primary care physician: Dominic Barr MD Attending physician on admission: Yee Cabral MD Discharging clinician: Yee Cabral MD Expected date of discharge: 02/17/17
== END 2017-02-17 17:05 | disposition home or self-care (01) | DRG 194 ==
LOC: N.ED 07:49 → N.EDINP 10:43 → N.2E 14:35
PROVIDERS: ADMIT Internal Medicine; ATTEND Internal Medicine